=== PATIENT | male | born 1950 | race Caucasian/White ===

== ENCOUNTER 2016-06-08 10:16 | Outpatient (CLI) | payer MEDICARE, OTHER | END 2016-06-08 10:17 | disposition home or self-care (01) | DX: N05.9 Unspecified nephritic syndrome with unspecified morphologic changes (principal); E83.30 Disorder of phosphorus metabolism, unspecified; N25.81 Secondary hyperparathyroidism of renal origin; R80.9 Proteinuria, unspecified; D70.9 Neutropenia, unspecified; D63.1 Anemia in chronic kidney disease ==

== ENCOUNTER 2016-07-28 08:00 | Outpatient (CLI) | payer MEDICARE, OTHER | END 2016-07-28 23:59 | DX: E78.5 Hyperlipidemia, unspecified (principal); E11.9 Type 2 diabetes mellitus without complications; I10 Essential (primary) hypertension; N18.4 Chronic kidney disease, stage 4 (severe) ==

== ENCOUNTER 2017-01-17 08:56 | Outpatient (CLI) | payer MEDICARE, OTHER ==
[2017-01-17 12:49] LABS: BASOPHILS # (AUTO) 0.1 10^3/uL (0.0-0.1); BASOPHILS % (AUTO) 0.8 %; EOSINOPHILS # (AUTO) 0.5 10^3/uL (0.0-0.7); EOSINOPHILS % (AUTO) 8.3 %; HCT - HEMATOCRIT 38.3 % (42.0-52.0); HGB - HEMOGLOBIN 13.3 g/dL (14.0-18.0); LYMPHOCYTES # (AUTO) 1.3 10^3/uL (1.5-3.5); LYMPHOCYTES % (AUTO) 20.8 %; MEAN CORPUSCULAR HEMOGLOBIN 28.5 pg (27.0-31.0); MEAN CORPUSCULAR HGB CONC 34.8 g/dL (32.0-36.0); MEAN PLATELET VOLUME 7.9 fL (7.4-11.4); MONOCYTES # (AUTO) 0.4 10^3/uL (0.0-1.0); MONOCYTES % (AUTO) 5.9 %; NEUTROPHILS # (AUTO) 4.1 10^3/uL (1.5-6.6); NEUTROPHILS % (AUTO) 64.2 %; NUCLEATED RED BLOOD CELLS AUTO 0.1 /100WBC; RED BLOOD COUNT 4.67 10^6/uL (4.70-6.10); RED CELL DISTRIBUTION WIDTH 14.2 % (12.0-15.0); UNCORRECTED WHITE BLOOD COUNT 6.3 x10^3/uL; WHITE BLOOD COUNT 6.3 x10^3/uL (4.8-10.8)
[2017-01-17 13:22] LABS: ALBUMIN/GLOBULIN RATIO 1.3 (1.0-2.2); BILIRUBIN,TOTAL 0.5 mg/dL (0.2-1.0); BUN - BLOOD UREA NITROGEN 34 mg/dL (6-20); CALCIUM 9.3 mg/dL (8.5-10.3); CARBON DIOXIDE - CO2 23 mmol/L (21-32); CHLORIDE 107 mmol/L (101-111); CHOL/HDL RATIO 10.8 (<5.0); CHOLESTEROL 281 mg/dL; CREATININE 2.6 mg/dL (0.6-1.2); GFR - MDRD 25 (>89); GLUCOSE 215 mg/dL (70-100); HDL CHOLESTEROL 26 mg/dL; POTASSIUM 3.9 mmol/L (3.5-5.0); SODIUM 137 mmol/L (135-145); TOTAL PROTEIN 7.1 g/dL (6.7-8.2); TRIGLYCERIDES 872 mg/dL
[2017-01-17 13:33] LABS: HEMOGLOBIN A1C 1.29 g/dL
[2017-01-17 13:42] LABS: LDL CHOLESTEROL,DIRECT 95 mg/dL
== END 2017-01-17 08:57 | disposition home or self-care (01) ==
LOC: LAB.WCP 08:56
PROVIDERS: ATTEND Family Medicine
DX: E11.21 Type 2 diabetes mellitus with diabetic nephropathy (principal); N18.4 Chronic kidney disease, stage 4 (severe); E78.5 Hyperlipidemia, unspecified; I10 Essential (primary) hypertension; N05.9 Unspecified nephritic syndrome with unspecified morphologic changes; D70.9 Neutropenia, unspecified; D63.1 Anemia in chronic kidney disease
CPT/HCPCS: 36415; 80053; 80061; 83036; 84443; 85025

== ENCOUNTER 2017-07-10 08:00 | Outpatient (CLI) | payer MEDICARE, OTHER ==
[2017-07-10 13:49] LABS: ALBUMIN 4.1 g/dL (3.2-5.5); ALBUMIN/GLOBULIN RATIO 1.3 (1.0-2.2); BILIRUBIN,TOTAL 0.3 mg/dL (0.2-1.0); CALCIUM 9.3 mg/dL (8.5-10.3); CREATININE 2.9 mg/dL (0.6-1.2); TOTAL PROTEIN 7.3 g/dL (6.7-8.2)
[2017-07-10 13:51] LABS: HB2 TOTAL 14.2 g/dL; HEMOGLOBIN A1C 0.87 g/dL; HEMOGLOBIN A1C % 7.8 % (4.6-6.2)
== END 2017-07-10 08:01 | disposition home or self-care (01) ==
LOC: LAB.WCP 08:00
PROVIDERS: ATTEND Family Medicine
DX: I12.9 Hypertensive chronic kidney disease with stage 1 through stage 4 chronic kidney disease, or unspecified chronic kidney disease (principal); N18.4 Chronic kidney disease, stage 4 (severe); E11.9 Type 2 diabetes mellitus without complications; R00.2 Palpitations
CPT/HCPCS: 36415; 80053; 83036

== ENCOUNTER 2017-09-06 08:00 | Outpatient (CLI) | payer MEDICARE, OTHER ==
[2017-09-06 12:57] LABS: HGB - HEMOGLOBIN 13.1 g/dL (14.0-18.0); MEAN CORPUSCULAR HEMOGLOBIN 28.9 pg (27.0-31.0); MEAN PLATELET VOLUME 7.9 fL (7.4-11.4); RED BLOOD COUNT 4.55 10^6/uL (4.70-6.10); RED CELL DISTRIBUTION WIDTH 14.7 % (12.0-15.0); WHITE BLOOD COUNT 6.5 x10^3/uL (4.8-10.8)
[2017-09-06 13:37] LABS: CALCIUM 9.1 mg/dL (8.5-10.3); PHOSPHORUS 2.8 mg/dL (2.5-4.6)
[2017-09-06 15:17] LABS: CREATININE,URINE 98.5 mg/dL; PROTEIN/CREATININE RATIO,URINE 2.4 (<=0.2)
== END 2017-09-06 08:01 ==
LOC: LAB.WCP 08:00
PROVIDERS: ATTEND Internal Medicine Nephrology
DX: D70.9 Neutropenia, unspecified (principal); D63.1 Anemia in chronic kidney disease; N05.9 Unspecified nephritic syndrome with unspecified morphologic changes; E83.50 Unspecified disorder of calcium metabolism; E83.30 Disorder of phosphorus metabolism, unspecified; R80.9 Proteinuria, unspecified
CPT/HCPCS: 36415; 80048; 82570; 84100; 84156

== ENCOUNTER 2018-02-13 09:30 | Outpatient (CLI) | payer MEDICARE, OTHER ==
[2018-02-13 12:47] LABS: HB2 TOTAL 13.3 g/dL; HEMOGLOBIN A1C 0.92 g/dL; HEMOGLOBIN A1C % 8.5 % (4.6-6.2)
[2018-02-13 12:52] LABS: ALBUMIN 4.1 g/dL (3.2-5.5); ALBUMIN/GLOBULIN RATIO 1.3 (1.0-2.2); ALKALINE PHOSPHATASE 31 IU/L (42-121); ALT ALANINE AMINOTRANSFERASE 27 IU/L (10-60); AST ASPARTATE AMINOTRANSFERASE 29 IU/L (10-42); BILIRUBIN,TOTAL 0.7 mg/dL (0.2-1.0); BUN - BLOOD UREA NITROGEN 36 mg/dL (6-20); CALCIUM 10.1 mg/dL (8.5-10.3); CARBON DIOXIDE - CO2 22 mmol/L (21-32); CHLORIDE 105 mmol/L (101-111); CHOL/HDL RATIO 9.3 (<5.0); CHOLESTEROL 260 mg/dL; CREATININE 3.2 mg/dL (0.6-1.2); GFR - MDRD 19 (>89); GLUCOSE 87 mg/dL (70-100); HDL CHOLESTEROL 28 mg/dL; SODIUM 138 mmol/L (135-145); TOTAL PROTEIN 7.2 g/dL (6.7-8.2)
[2018-02-13 13:33] LABS: LDL CHOLESTEROL,DIRECT 119 mg/dL; LDLD/HDL RATIO 4.3 (<3.6)
== END 2018-02-13 09:31 ==
LOC: LAB.WCP 09:30
PROVIDERS: ATTEND Family Medicine
DX: E78.5 Hyperlipidemia, unspecified (principal); Z12.5 Encounter for screening for malignant neoplasm of prostate; E11.22 Type 2 diabetes mellitus with diabetic chronic kidney disease; I12.9 Hypertensive chronic kidney disease with stage 1 through stage 4 chronic kidney disease, or unspecified chronic kidney disease; N18.4 Chronic kidney disease, stage 4 (severe)
CPT/HCPCS: 36415; 80053; 80061; 83036; 83721; G0103; 84153

== ENCOUNTER 2018-07-09 08:00 | Outpatient (CLI) | payer MEDICARE, OTHER | END 2018-07-09 23:59 | disposition home or self-care (01) | LOC: LAB.WCP 08:00 | PROVIDERS: ATTEND Family Medicine | DX: J02.9 Acute pharyngitis, unspecified (principal); L29.9 Pruritus, unspecified ==

== ENCOUNTER 2018-07-18 08:00 | Outpatient (CLI) | payer MEDICARE, OTHER ==
[2018-07-18 13:07] LABS: BASOPHILS % (AUTO) 0.8 %; EOSINOPHILS # (AUTO) 0.7 10^3/uL (0.0-0.7); EOSINOPHILS % (AUTO) 12.1 %; HGB - HEMOGLOBIN 12.7 g/dL (14.0-18.0); LYMPHOCYTES # (AUTO) 1.1 10^3/uL (1.5-3.5); LYMPHOCYTES % (AUTO) 19.9 %; MEAN CORPUSCULAR HGB CONC 33.8 g/dL (32.0-36.0); MEAN CORPUSCULAR VOLUME 85.7 fL (80.0-94.0); MEAN PLATELET VOLUME 8.1 fL (7.4-11.4); MONOCYTES # (AUTO) 0.3 10^3/uL (0.0-1.0); MONOCYTES % (AUTO) 5.5 %; NEUTROPHILS # (AUTO) 3.4 10^3/uL (1.5-6.6); NEUTROPHILS % (AUTO) 61.7 %; PLT - PLATELET COUNT 159 10^3/uL (130-450); RED BLOOD COUNT 4.39 10^6/uL (4.70-6.10); RED CELL DISTRIBUTION WIDTH 14.4 % (12.0-15.0); WHITE BLOOD COUNT 5.5 x10^3/uL (4.8-10.8)
[2018-07-18 13:19] LABS: ALBUMIN 3.9 g/dL (3.2-5.5); ALBUMIN/GLOBULIN RATIO 1.1 (1.0-2.2); ALKALINE PHOSPHATASE 34 IU/L (42-121); ALT ALANINE AMINOTRANSFERASE 29 IU/L (10-60); AST ASPARTATE AMINOTRANSFERASE 28 IU/L (10-42); BILIRUBIN,TOTAL 0.6 mg/dL (0.2-1.0); BUN - BLOOD UREA NITROGEN 31 mg/dL (6-20); CALCIUM 8.9 mg/dL (8.5-10.3); CARBON DIOXIDE - CO2 21 mmol/L (21-32); CHLORIDE 105 mmol/L (101-111); CREATININE 2.8 mg/dL (0.6-1.2); GFR - MDRD 23 (>89); GLUCOSE 137 mg/dL (70-100); SODIUM 134 mmol/L (135-145); TOTAL PROTEIN 7.4 g/dL (6.7-8.2)
[2018-07-18 14:50] LABS: HB2 TOTAL 13.2 g/dL; HEMOGLOBIN A1C 0.84 g/dL
== END 2018-07-18 23:59 | disposition home or self-care (01) ==
LOC: LAB.WCP 08:00
PROVIDERS: ATTEND Family Medicine
DX: E11.40 Type 2 diabetes mellitus with diabetic neuropathy, unspecified (principal); E11.21 Type 2 diabetes mellitus with diabetic nephropathy; E11.9 Type 2 diabetes mellitus without complications
CPT/HCPCS: 36415; 80053; 82043; 83036; 84443; 85025

== ENCOUNTER 2018-10-01 15:55 | Observation (INO) | payer MEDICARE, OTHER ==
--- NOTE | 2018-10-01 16:13 | ED Physician Documentation ---
PD HPI FOCAL NEURO - Stated complaint Stated Complaint: DIZZY/MOUTH SLUGGISH - Chief complaint Chief Complaint: Neuro - History obtained from History obtained from: Patient, Family () - History of Present Illness Timing - onset: Other (Starting 3 days ago he has had vertigo that space is been constant since associated with fatigue and starting 2 days ago he has had difficulty speaking with slurred speech and discoordination of his tongue without a aphasia. There is no associated headache. He feels generally weak but not focally weak or numb.) Review of Systems Ten Systems: 10 systems reviewed and negative Constitutional: reports: Reviewed and negative Ears: reports: Reviewed and negative Nose: reports: Reviewed and negative Throat: reports: Reviewed and negative PD PAST MEDICAL HISTORY - Past Medical History Cardiovascular: Hypertension, High cholesterol Endocrine/Autoimmune: Type 2 diabetes : Renal insuffiency, Kidney stones - Present Medications Home Medications: Ambulatory Orders Medication Instructions Recorded Confirmed Amlodipine Besylate 10 mg PO BID 02/26/18 02/26/18 Carvedilol 12.5 mg PO BID 02/26/18 02/26/18 Clotrimazole/Betamethasone Crm 45 gm TOP BID 02/26/18 02/26/18 [Lotrisone Cream] Fenofibrate 160 mg PO DAILY 02/26/18 02/26/18 Gabapentin 300 mg PO BID 02/26/18 02/26/18 Insulin NPH Hum/Reg Insulin Hm 60 unit SUBQ BIDWM 02/26/18 02/26/18 [Novolin 70-30 100 Unit/ml Vial] hydrALAZINE [Apresoline] 50 mg PO BID 02/26/18 02/26/18 - Allergies Allergies/Adverse Reactions: Allergies Allergy/AdvReac Type Severity Reaction Status Date / Time No Known Drug Allergies Allergy Verified 10/01/18 16:10 - Social History Smoking Status: Former smoker Does the pt have substance abuse?: No - Family History Family history: reports: Non contributory PD ED PE NORMAL - Vitals Vital signs reviewed: Yes - General General: Alert and oriented X 3, No acute distress - HEENT HEENT: PERRL, EOMI - Neck Neck: Supple, no meningeal sign, No bony TTP - Cardiac Cardiac: RRR, No murmur - Respiratory Respiratory: No respiratory distress, Clear bilaterally - Abdomen Abdomen: Soft, Non tender - Back Back: No CVA TTP, No spinal TTP - Derm Derm: Normal color, Warm and dry - Extremities Extremities: No edema, No calf tenderness / cord - Neuro Neuro: Alert and oriented X 3, Normal speech Eye Opening: Spontaneous Motor: Obeys Commands Verbal: Oriented GCS Score: 15 NIHSS - Time Time: 16:05 - Level of Consciousness Level of consciousness: (0) Alert, Keenly responsive LOC Questions: (0) Answers both Q's correct LOC Commands: (0) Performs both correctly - Gaze Best Gaze: (0) Normal - Visual Visual: (0) No loss - Facial Palsy Facial Palsy: (0) Normal, symmetrical movement - Motor Arms (both separate) Motor Arm (right): (0) No drift Motor Arm (left): (0) No drift - Motor Legs (both separate) Motor Leg (right): (0) No drift Motor Leg (left): (0) No drift - Limb Ataxia Limb Ataxia: (0) Absent - Sensory Sensory: (0) Normal - Best Language Best Language: (0) No aphasia - Dysarthria Dysarthria: (1) Syah-ey-piqgiets dysarthria - Extinction and Inattention (formally neg Extinction and inattention: (0) No abnormality - Total Score/Results Total Score/Result: 1 Results - Vitals Vitals: Vital Signs - 24 hr 10/01/18 10/01/18 16:05 17:32 Temperature 36.6 C Heart Rate 71 76 Respiratory 15 17 Rate Blood Pressure 181/85 H 146/94 H O2 Saturation 100 97 Oxygen O2 Source Room air - Labs Labs: Laboratory Tests 10/01/18 10/01/18 10/01/18 16:07 16:07 16:07 WBC 6.5 RBC 4.84 Hgb 13.9 L Hct 41.3 L MCV 85.2 MCH 28.8 MCHC 33.7 RDW 13.7 Plt Count 183 MPV 7.5 Neut # (Auto) 3.8 Lymph # (Auto) 1.4 L [place] # (Auto) 0.4 Eos # (Auto) 0.8 H Baso # (Auto) 0.1 Absolute Nucleated RBC 0.01 Nucleated RBC % 0.1 PT 11.9 INR 1.1 Sodium 135 Potassium 4.6 Chloride 102 Carbon Dioxide 25 Anion Gap 8.0 BUN 38 H Creatinine 3.1 H Estimated GFR (MDRD) 20 L Glucose 212 H POC Whole Bld Glucose Calcium 9.3 Total Bilirubin 0.6 AST 27 ALT 34 Alkaline Phosphatase 43 Total Protein 7.2 Albumin 4.2 Globulin 3.0 Albumin/Globulin Ratio 1.4 Lipase 51 10/01/18 16:08 WBC RBC Hgb Hct MCV MCH MCHC RDW Plt Count MPV Neut # (Auto) Lymph # (Auto) [place] # (Auto) Eos # (Auto) Baso # (Auto) Absolute Nucleated RBC Nucleated RBC % PT INR Sodium Potassium Chloride Carbon Dioxide Anion Gap BUN Creatinine Estimated GFR (MDRD) Glucose POC Whole Bld Glucose 212 H Calcium Total Bilirubin AST ALT Alkaline Phosphatase Total Protein Albumin Globulin Albumin/Globulin Ratio Lipase - Rads (name of study) CT Head Radiology: EMP read contemporaneously (NAD) PD MEDICAL DECISION MAKING - ED course ED course: 68-year-old gentleman presents with strokelike symptoms. Well outside of the window for TPA. Chronic renal insufficiency is at a level that would not allow contrast for CT angiography. Plain CT was negative for acute pathology but low sensitivity for posterior symptoms. Administered aspirin after no bleed found. Spoke with Dr. Cordoba for observation at 6:05 PM. Departure - Departure Disposition: ED Place in Observation Clinical Impression: Dysarthria, Vertigo Condition: Stable
[2018-10-01] MEDS ORDERED: IOPAMIDOL-370 100 ML VIAL ONE (16:24)
[2018-10-01 16:31] LABS: BASOPHILS # (AUTO) 0.1 10^3/uL (0.0-0.1); EOSINOPHILS # (AUTO) 0.8 10^3/uL (0.0-0.7); HGB - HEMOGLOBIN 13.9 g/dL (14.0-18.0); LYMPHOCYTES # (AUTO) 1.4 10^3/uL (1.5-3.5); LYMPHOCYTES % (AUTO) 21.1 %; MEAN CORPUSCULAR HEMOGLOBIN 28.8 pg (27.0-31.0); MEAN CORPUSCULAR HGB CONC 33.7 g/dL (32.0-36.0); MEAN CORPUSCULAR VOLUME 85.2 fL (80.0-94.0); MEAN PLATELET VOLUME 7.5 fL (7.4-11.4); MONOCYTES # (AUTO) 0.4 10^3/uL (0.0-1.0); MONOCYTES % (AUTO) 6.3 %; NEUTROPHILS # (AUTO) 3.8 10^3/uL (1.5-6.6); NEUTROPHILS % (AUTO) 58.6 %; PLT - PLATELET COUNT 183 10^3/uL (130-450); RED BLOOD COUNT 4.84 10^6/uL (4.70-6.10); RED CELL DISTRIBUTION WIDTH 13.7 % (12.0-15.0); WHITE BLOOD COUNT 6.5 x10^3/uL (4.8-10.8)
[2018-10-01] MEDS ORDERED: IOVERSOL 320 100 ML VIAL IVP ONE (16:32)
[2018-10-01 16:37] LABS: ALBUMIN 4.2 g/dL (3.2-5.5); ALBUMIN/GLOBULIN RATIO 1.4 (1.0-2.2); BILIRUBIN,TOTAL 0.6 mg/dL (0.2-1.0); CALCIUM 9.3 mg/dL (8.5-10.3); CREATININE 3.1 mg/dL (0.6-1.2); INR 1.1 (0.8-1.2); PT - PROTHROMBIN TIME 11.9 secs (9.9-12.6); TOTAL PROTEIN 7.2 g/dL (6.7-8.2)
--- NOTE | 2018-10-01 18:01 | CT Report ---
Reason: dysarthria, vertigo Procedure Date: 10/01/2018 Accession Number: [id number] / [id number] Procedure: CT - HEAD WO CPT Code: FULL RESULT: EXAM: CT HEAD EXAM DATE: 10/01/2018 05:01 PM. CLINICAL HISTORY: Dysarthria, vertigo. COMPARISON: None. TECHNIQUE: Multiaxial CT images were obtained from the foramen magnum to the vertex. Reformats: Sagittal and coronal. IV contrast: None. In accordance with CT protocol optimization, one or more of the following dose reduction techniques were utilized for this exam: automated exposure control, adjustment of mA and/or KV based on patient size, or use of iterative reconstructive technique. FINDINGS: Parenchyma: No intraparenchymal hemorrhage. No evidence of mass, midline shift, or CT findings of acute infarction. Barbosa-white differentiation is distinct. Extraaxial Spaces: Mild volume loss. No subdural or epidural collections identified. Ventricles: Normal in size and position. Sinuses and Orbits: Imaged paranasal sinuses, orbits, and mastoids show no significant abnormality. Bones: No evidence of fracture or calvarial defect. Other: None. IMPRESSION: No acute intracranial abnormality. RADIA
[2018-10-01] MEDS ORDERED: ASPIRIN CHEW 81 MG TABLET PO STA (18:03)
[2018-10-01] MEDS ORDERED: ONDANSETRON 4 MG/2 ML VIAL IVP PRN (18:14)
[2018-10-01] MEDS ORDERED: SODIUM CHLORIDE FLUSH 0.9% 10 ML SYRINGE IVP PRN (18:14)
[2018-10-01] MEDS ORDERED: ACETAMINOPHEN 325 MG TABLET PO PRN (18:14)
[2018-10-01 19:36] LABS: HB2 TOTAL 15.2 g/dL; HEMOGLOBIN A1C 0.96 g/dL; HEMOGLOBIN A1C % 7.9 % (4.6-6.2)
[2018-10-01] MEDS: SODIUM CHLORIDE 0.9% 1,000 ML IV SCH (19:46)
[2018-10-01] MEDS: SODIUM CHLORIDE FLUSH 0.9% 10 ML SYRINGE IVP SCH (19:46)
--- NOTE | 2018-10-01 20:31 | Ultrasound Report ---
Reason: TIA Procedure Date: 10/01/2018 Accession Number: [id number] / [id number] Procedure: US - Carotid Doppler Complete CPT Code: FULL RESULT: EXAM: BILATERAL CAROTID AND VERTEBRAL ARTERY DUPLEX DOPPLER ULTRASOUND: EXAM DATE: 10/01/2018 07:20 PM CLINICAL HISTORY: Stroke. COMPARISON: None. TECHNIQUE: Grayscale imaging, color Doppler, and duplex spectral Doppler were used to evaluate the carotid and vertebral arteries bilaterally. Static images were obtained. FINDINGS: No significant plaque is identified in the right or left common or internal carotid arteries. Normal antegrade flow is present in bilateral vertebral arteries. VELOCITIES (cm/sec): Right CCA mid: PSV 74.6 cm/sec CCA dist: PSV 72 cm/sec ICA prox: PSV 61.5 cm/sec, EDV 15.7 cm/sec ICA mid: PSV 68.7 cm/sec, EDV 15.7 cm/sec ICA dist: PSV 59.5 cm/sec, EDV 14.4 cm/sec ECA: PSV 79.2 cm/sec Vert: PSV 39.9 cm/sec ICA/CCA: 0.9 Left CCA mid: PSV 74.8 cm/sec CCA dist: PSV 73.3 cm/sec ICA prox: PSV 70.2 cm/sec, EDV 15.3 cm/sec ICA mid: PSV 65.6 cm/sec, EDV 16.8 cm/sec ICA dist: PSV 70.7 cm/sec, EDV 15.3 cm/sec ECA: PSV 92.3 cm/sec Vert: PSV 64.9 cm/sec ICA/CCA: 0.9 ICA diameter stenosis: Right: <50% by velocity and <70% by NASCET criteria. Left: <50% by velocity and <70% by NASCET criteria. IMPRESSION: 1. No significant bilateral carotid artery plaquing. 2. In the right carotid artery there are no elevated carotid artery velocities to suggest hemodynamically significant stenosis. 3. In the left carotid artery there are no elevated carotid artery velocities to suggest hemodynamically significant stenosis. 4. Normal antegrade flow is present in bilateral vertebral arteries. General Recommendations: Stenosis =50% ICA - Follow-up ultrasound 6-12 months Stenosis <50% ICA - High Risk Patient with plaque - Follow-up ultrasound 1-2 years Normal Study but High Risk Patient - Follow-up ultrasound 3-5 years Management recommendations and diagnostic criteria are based on current IAC endorsed standards in Carotid Artery Stenosis: Grayscale and Doppler Ultrasound Diagnosis. Validated velocity measurements with angiographic measurements and velocity criteria are extrapolated from diameter data as defined by the Society of Radiologists in Ultrasound Consensus Conference Radiology 2003; 229;340-346. RADIA
[2018-10-01] MEDS ORDERED: NON FORMULARY MED (Amlodipine Besylate [Amlodipine Besylate] 10 MG) PO SCH (21:00)
[2018-10-01] MEDS ORDERED: FAMOTIDINE 20 MG TABLET PO SCH (21:00)
--- NOTE | 2018-10-01 21:13 | MRI Report ---
Reason: TIA Procedure Date: 10/01/2018 Accession Number: [id number] / [id number] Procedure: MRI - Brain W/O CPT Code: FULL RESULT: EXAM: MRI BRAIN WITHOUT CONTRAST EXAM DATE: 10/01/2018 07:07 PM. CLINICAL HISTORY: 68-year-old presenting with TIA like episode as well as dizziness and vertigo. Evaluate for intracranial pathology. COMPARISON: CT head 10/01/2018. TECHNIQUE: Multiplanar, multisequence T1-weighted and fluid-sensitive MR sequences of the brain were performed. Sequences optimized for routine evaluation. Other: None. IV Contrast: None. FINDINGS: Brain Volume: Normal for age. Parenchyma/Dura: No acute parenchymal hemorrhage, mass, or midline shift. There is a small area of restricted diffusion involving the left hemipons 8 x 13 mm (series 605, image 56). There is associated T2/FLAIR signal hyperintensity but no evidence of hemorrhagic transformation. There is a punctate foci of restricted diffusion involving the superior right thalamus measuring 2 x 5 mm (series 605, image 112). There is associated T2/FLAIR signal hyperintensity but no evidence of hemorrhagic transformation. There is additional mild bilateral areas of T2/FLAIR signal hyperintensity seen. There is punctate foci susceptibility artifact seen within the right lateral thalamus (series 501, image 12). Ventricles/Cisterns: No hydrocephalus. No abnormal extra-axial fluid collection or hemorrhage. Orbits: Changes of bilateral lens replacement. Sella [place]: The pituitary gland, cavernous sinuses, suprasellar cistern and optic chiasm are unremarkable. IAC: Symmetric and unremarkable. Vasculature: Normal signal flow void is seen in the major arterial structures at the skull base. Sinuses: Mild mucosal thickening of the ethmoid air cells with minimal mucosal thickening of the maxillary sinuses and sphenoid sinuses. Mastoid air cells and middle ear cavities appear clear. Bones: No focal pathologic appearing marrow signal changes. Other: None. IMPRESSION: 1. There is a small acute infarct of the left hemipons measuring 8 x 13 mm. No evidence of hemorrhagic transformation. 2. There is a punctate acute infarct of the superior right thalamus measuring 2 x 5 mm. No evidence of hemorrhagic transformation. Infarcts in varying vascular territory suggest a thromboembolic phenomenon. 3. No acute intracranial hemorrhage, mass, hydrocephalus, or midline shift. 4. Additional mild white matter changes seen that while nonspecific, likely represent sequela of chronic small vessel ischemic disease. 5. Punctate foci of chronic hemosiderin deposition within the right lateral thalamus. Etiologies include microhemorrhage from hypertension or old hemorrhagic lacunar infarct. RADIA The call report notification system was initiated by Dr. Siddhartha Black at 09:12 PM on 10/01/2018. ADDENDUM: 10/01/18 22:02 The above call report findings were discussed with Christine Sanford by Dr. Siddhartha Black at 10:02 PM on 10/01/2018.
[2018-10-01] MEDS: HEPARIN 5,000 UNIT/ML VIAL SUBQ SCH (22:28)
[2018-10-01] MEDS: INSULIN ASPART 300 UNIT/3 ML PEN SUBQ SCH (22:29)
[2018-10-01] MEDS: CARVEDILOL 12.5 MG TABLET PO SCH (22:30)
[2018-10-01] MEDS: hydrALAZINE 25 MG TABLET PO SCH (22:30)
--- NOTE | 2018-10-01 22:39 | ADVANCE CARE PLANNING NOTE ---
Advance Care Planning - Date/Time Date: 10/01/18 Time: 20:30 - Purpose of encounter Text: establish code status - Parties in attendance Parties in attendance: , patient and hospitalist - Decisional capacity Decisional capacity of: patient is intact in spite of CVA. Lucid historian, alert, slight dysarthria. feels he is his usual self with regards to decisions. - Subjective/Patient's story Subjective/Patient's story: He lives at home with his of 49 years and has been fatalistic about his health. He likes to do what he wants to do and doesn't like to change. Hence his A1c has not been below 7% except for maybe once, and his BP is high. He does drink 4-6 large glasses of wine a day. He feels like he's had a good life and he's "ready to " if it comes to that. He has 12 children and over 25 grandchildren and he is a "wealthy man" with such a large, loving family. He comes in w hx of severe fatigue on 09/28 with onset of dizziness he's had before. 10 years ago he has such severe vertigo it caused nausea and vomititng with blurred vision. This time he had dysarthria starting on 09/29. 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 He is already starting to improve his speech while he has been here. He feels great and doesn't really want much done. He is starting to think about "winding down" because of his health and what that would mean. He thinks he may opt for less interventions in the next few months depending on how much his body goes downhill. His has made is clear she cannot be his "nurse" and would want help with him. With that in mind he knows he doesn't want her or his kids taking care of him if he is disabled and he doesn't want to live in a SNF. he is currently independt with his ADL's but recognizes that may change with his strokes, if they continue. I've also pointed out his risk of KS or need for dialysis if he drops his pressures. - Objective/Medical story Objective/Medical Story: Timing - onset: Other (Starting 3 days ago he has had vertigo that space is been constant since associated with fatigue and starting 2 days ago he has had difficulty speaking with slurred speech and discoordination of his tongue wit hout a aphasia. There is no associated headache. He feels generally weak but not focally weak or numb.) Review of Systems Ten Systems: 10 systems reviewed and negative Constitutional: reports: Reviewed and negative Ears: reports: Reviewed and negative Nose: reports: Reviewed and negative Throat: reports: Reviewed and negative PD PAST MEDICAL HISTORY - Past Medical History Cardiovascular: Hypertension, High cholesterol Endocrine/Autoimmune: Type 2 diabetes : Renal insuffiency, Kidney stones His MRI shows 2 acute strokes plus one old stroke. Carotids negative. ECHO pending. EKG with sinus, PVC and PAC. Exam already improving according to he and his with speech better, and dizziness gone. - Goals of Care Goals of care determinations: He wants to remain at home and indepenndent as possible. Not bedbound, not in a wheelchair even if he is still oriented and still capable of communicating. He wants to be DNR and he both agree she cannot take care of him if he becomes disabled. - Plan Plan: Complete workup for possible embolic CVA with ECHO Consult [facility] PT/OT/Speech eval. Most likely will go home in am since feels so much better. I would like he and his to begin the discussion of what they will do if he does become more disabled and what their plans would look like since she can't care for him and he doesn't want SNF. They are open to Palliative Care Consult as he continues to wind down with his physicality and would then most likely transition to Hospice when the time comes. - Code Status Code Status: Do Not Attempt Resuscitation - Time Spent on Advance Care Planning Time spent on advance care plannin minutes
[2018-10-02] MEDS: SODIUM CHLORIDE FLUSH 0.9% 10 ML SYRINGE IVP SCH ×2 (00:51→08:26)
--- NOTE | 2018-10-02 01:49 | HISTORY & PHYSICAL EXAMINATION ---
DATE OF SERVICE: 10/01/2018 Physician: Nina Corcoran MD PRIMARY CARE PROVIDER: Ross Mcdaniel MD. ADMITTING PROVIDER: Nina Corcoran MD. CHIEF COMPLAINT: Severe fatigue, severe dizziness, dysarthric speech since Sunday (Today is Sunday). HISTORY OF PRESENT ILLNESS: The patient is a 68-year-old male whose past medical history with regard to risk of stroke is positive for high blood pressure and uncontrolled diabetes with complications of retinopathy, neuropathy and nephropathy. He also has hyperlipidemia. He is compliant with his medications. His A1c has gotten down to 8%. Unfortunately, he is drinking 2-4 glasses of wine a day, with each glass probably being around 4-6 ounces. He is an ex-smoker. He smoked 1 pack per day for 12 years and smoked for 12 years. Quit smoking in 1977. He is compliant with his medications. He sees his primary care provider on a regular basis. In February, he was identified as having a PSA that had risen from 2 in 2013 to over 5 in 2018. He was referred to urology, but there has been no urology note in the chart noted. He was seen for office visit followup in July for his diabetes. At that time, he had his A1c drop from 8.5% to 8%. His blood pressure for that visit was 142/84. There was hesitation in increasing his blood pressure medication even further because of the patient's chronic kidney disease for which he sees Dr. Toribio. He is stage 4. In May, he got a sore throat with chest congestion. He just has not been right since. He has been unusually congested in his sinuses and his head. He was treated as strep throat and got amoxicillin, but then had a subsequent rash. Changed to azithromycin. He still continues to have a mildly sore throat, chest congestion that just does not want to go away. He also has a history of vertigo. Ten years ago, it was so violent that he was nauseated and vomiting aggressively with this. That eventually went away. On Sunday, he drove back from [place]. This was on 09/28/2018. He noticed that he was unusually fatigued. By the time he got home, he was just exhausted and then the dizziness started as well on Sunday. Starting Sunday morning, he began having problems with his speech and has progressed from that point. Speech was getting more and more difficult. No significant paralysis, but he had dizziness and facial dysesthesia. He finally came to the hospital today, where he was evaluated in the emergency room. His blood pressure was 181/85, afebrile, oxygenating well. He was alert and oriented. Edinson coma scale was 15. He was felt to have normal speech on neuro exam, but when he did the NIHSS exam, he was felt to be dysarthric. Head CT shows him to have no acute intracranial abnormality. Carotid Doppler is done and he has no significant bilateral carotid artery plaquing and he has normal antegrade flow present in the bilateral vertebral arteries. An MRI does show a small acute infarct in the left zaina kumar measuring 8 x 13 mm, a punctate acute infarct in the superior right thalamus measuring 2 x 5 mm; no hemorrhagic transformation either one of these. Infarcts in varying vascular territories suggest a thromboembolic phenomena. He had punctate foci of chronic hemosiderin deposition within the right lateral thalamus. This final abnormality is interpreted as including micro hemorrhage from hypertension or old hemorrhagic lacunar infarct. His EKG is sinus tachycardia with a left bundle-branch block and he has multiple PVCs. PAST MEDICAL HISTORY 1. Hypertension. 2. Diabetes mellitus for over 20 years. He does not ever recall it being under control and below 7%. He has complications of retinopathy, neuropathy, and nephropathy. 3. Hernia repair surgery. 4. Achilles heel rupture. 5. Bilateral cataract surgery with lens implants. 6. Laser surgery for macular degeneration. 7. Rising PSA. Not clear about urological consult. ALLERGIES: NO KNOWN DRUG ALLERGIES. MEDICATIONS 1. Amlodipine 10 mg twice a day. 2. Cetirizine 10 mg daily. 3. Fluticasone nasal spray twice a day. 4. Carvedilol 12.5 mg twice a day. 5. Hydralazine 25 mg tablets, 2 tablets in the morning, 1 tablet at lunch, 1 tablet at night. 6. Fluocinonide 0.05% cream to the rash he got with the amoxicillin back in July. 7. Gabapentin 300 mg capsule b.i.d. for burning legs. 8. Novolin 70/30, 60 units in the morning and 60 units in the evening. 9. Fenofibrate 160 mg daily. SOCIAL HISTORY: He was born in [place]. 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 Was stationed on [facility], but the program got cut after a year. 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 That was 28 years ago. 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 He used to smoke 1 pack a day for 12 years. He drinks 2-4 glasses of wine a day. In the past, he drank heavily with beer when he was in the [employer]. Never had problems with withdrawal. No history of recreational substance abuse. to his for 49 years. FAMILY HISTORY: Mom at age 74 of sinus cancer that went quickly into her brain. She was a heavy smoker. Dad at age 76 of aortic aneurysm rupture. Of 5 brothers and 4 sisters, many of them have high blood pressure and diabetes. One had renal failure and "" at home, but was resuscitated in the hospital after a code. Twelve children; one had a stroke in his late 40s as complications of his diabetes and hypertension. There is no cancer, heart attack or stroke in any other children. PREVIOUS LEVEL OF FUNCTION: He still drives a car, is independent with all of his activities of daily living. pays the bills, but she has done so their entire marriage. He feels himself "winding down" mentally and physically over the last few years. He uses no DME. REVIEW OF SYSTEMS GENERAL: He denies any weight loss, unexpected dietary complaints. No fevers, no sweats. ENT: Plagued by chronic sore throat, chronic chest congestion, chronic sensation of postnasal drip, unresponsive to antibiotics and inhaled nasal steroids. He has been referred to ENT to see someone. PULMONARY: Chronic chest congestion in the last 4-5 months. Always a sensation of phlegm that he has to cough up. This is new for him. Prior to that, he had no pulmonary complaints. He denies wheezing, hemoptysis. CARDIAC: Denies edema, orthopnea, chest tightness with the above cough, but no chest pain. Cardiovascular endurance is about the same as it was 6 months ago, but 25% less than it was a year ago. Denies palpitations. GASTROINTESTINAL: He is unhappy that he has been really trying to cut back on his food, cut back on his carbs and it has resulted in no weight loss. He denies abdominal pain, change in his bowel habits. No blood in his stool. GENITOURINARY: Has urinary retention symptoms, nocturia, urgency, frequency, rising PSA. No blood in his urine. No flank pain. JOINTS: He used to have terrible, terrible back pain with 2 disc ruptures when he was in the [employer]. But since slowing down with his life over the last few years, he has no back pain at all now. He thinks it is wonderful. In spite of his life, which was quite active, he feels like he is pretty blessed that he does not have significant joint pain. SKIN: Body rash in July with amoxicillin, has resolved. PSYCHIATRIC: He is sad about how much his body has slowed down over the last year, but he is not suicidal. He does not feel like he is depressed. Very fatalistic attitude. FILM MASKER: Ten years ago violent vertigo with nausea and vomiting, but no dysarthria, no syncope. No focal deficits of strength. With this, he feels like his tongue is not moving, his speech is slurred hours and he is having difficulty moving his limbs at times when he wanted them to move. Dizziness is present. PHYSICAL EXAMINATION VITAL SIGNS: Temperature is 36.6, pulse is 63, blood pressure is 159/93, respirations 20, and he is 97% on room air. GENERAL: He is a stocky 5 feet 8 inch white male at 104 kg. HEAD AND NECK: Slight left facial droop, slightly dysarthric speech only with specific words, not all words, and his sentence structure is quite good. Pupils are reactive. Some nystagmus in the left lateral gaze. Bearded, well groomed. Neck is supple. No goiter or bruits. No JVD. LUNGS: Clear in a barrel chest without crackles, rhonchi or wheezing. HEART: PMI is normally placed with a regular rate and rhythm. No murmurs, rubs or gallops. ABDOMEN: Protuberant, soft, nontender, obese. I do not really feel organomegaly. Normal bowel sounds. He does have slight femoral bruits. EXTREMITIES: Warm without clubbing, cyanosis or edema. Good foot pulses. NEUROLOGIC: Cranial nerves II-XII are tested and his speech is affected with slight left facial droop and nystagmus. Otherwise, upper and lower strength testing is normal. [id number] is slightly affected on the left, but rapid alternating hand movement is normal. No tremors. I am examining him after he had already been admitted for a couple of hours and he and his both state that he feels great. His speech is almost back to normal. LABORATORY DATA: BUN 38, creatinine 3.1, random glucose 212. A1c is 7.9%. Troponin less than 0.04. Liver enzymes are normal. White cell count 6.5, hemoglobin 13.9, hematocrit 41.3, MCV 85.2. INR 1.1. EKG has normal sinus rhythm with PVCs and left bundle-branch block. CT of the head, MRI of head, and carotid Dopplers reviewed in history of present illness. ASSESSMENT/PLAN: 1. 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 EKG is not atrial fib but he may be in and out. Plan: +Observation stay. The patient is already improving. Most of workup has been completed. +PT and OT evaluations in the morning as well as speech therapy to see if this patient is a candidate for inpatient rehab or he can go home with outpatient PT, OT and speech. +Attestation: The patient will be discharged within 96 hours. +Vital signs every 4 hours. +Aspirin and a statin have been given to the patient. When he is discharged to home, he will be on combined Plavix and aspirin for a specific time period, and then down to aspirin. +Echocardiogram to evaluate for possible embolic phenomenon. 2. Diabetes mellitus, uncontrolled, on long-term insulin with complications of retinopathy, nephropathy and neuropathy. Resume usual insulin. Add sliding scale insulin. This patient is already suffering the consequences of combined risk factors. I have carefully explained to him that if he can get his sugar and his glucose down, he can reduce some of his risk. 3. Uncontrolled hypertension in the outpatient setting. Now patient is with a stroke. Permissive hypertension will be allowed to a systolic of up to 180. 4. Abnormal prostate specific antigen. The patient cannot remember why he did not follow through with urology. It was not brought up on his last 2 visits. He does not know if he even wants to follow through. Advance care planning conversation held under separate conversation and note. 5. Do not resuscitate status. Again, separate advanced care planning conversation held. Please refer to that note. 6. Deep venous thrombosis prophylaxis. Will remain only aspirin and PIPPA hose in view of embolic phenomena. TD: 10/01/2018 22:29 [facility] SYSTEMAram
[2018-10-02] MEDS: SODIUM CHLORIDE 0.9% 1,000 ML IV SCH (05:13)
[2018-10-02 05:43] LABS: BASOPHILS # (AUTO) 0.1 10^3/uL (0.0-0.1); BASOPHILS % (AUTO) 0.9 %; EOSINOPHILS # (AUTO) 0.8 10^3/uL (0.0-0.7); HGB - HEMOGLOBIN 12.9 g/dL (14.0-18.0); LYMPHOCYTES # (AUTO) 1.4 10^3/uL (1.5-3.5); LYMPHOCYTES % (AUTO) 24.6 %; MEAN CORPUSCULAR HGB CONC 33.7 g/dL (32.0-36.0); MEAN CORPUSCULAR VOLUME 86.1 fL (80.0-94.0); MEAN PLATELET VOLUME 7.5 fL (7.4-11.4); MONOCYTES # (AUTO) 0.4 10^3/uL (0.0-1.0); MONOCYTES % (AUTO) 6.2 %; NEUTROPHILS # (AUTO) 3.2 10^3/uL (1.5-6.6); NEUTROPHILS % (AUTO) 55.3 %; PLT - PLATELET COUNT 165 10^3/uL (130-450); RED BLOOD COUNT 4.43 10^6/uL (4.70-6.10); RED CELL DISTRIBUTION WIDTH 13.8 % (12.0-15.0); WHITE BLOOD COUNT 5.8 x10^3/uL (4.8-10.8)
[2018-10-02 06:07] LABS: BUN - BLOOD UREA NITROGEN 35 mg/dL (6-20); CALCIUM 8.6 mg/dL (8.5-10.3); CARBON DIOXIDE - CO2 23 mmol/L (21-32); CHLORIDE 106 mmol/L (101-111); CHOL/HDL RATIO 13.5 (<5.0); CHOLESTEROL 269 mg/dL; GFR - MDRD 21 (>89); GLUCOSE 146 mg/dL (70-100); HDL CHOLESTEROL 20 mg/dL; MAGNESIUM 2.2 mg/dL (1.7-2.8); SODIUM 138 mmol/L (135-145)
[2018-10-02 06:35] LABS: LDL CHOLESTEROL,DIRECT 106 mg/dL; LDLD/HDL RATIO 5.3 (<3.6)
[2018-10-02] MEDS ORDERED: INSULIN 70/30 HUMAN 100 UNIT/1 ML 10 ML MDV SUBQ SCH (08:00)
[2018-10-02] MEDS ORDERED: ASPIRIN 325 MG TABLET PO SCH (08:00)
[2018-10-02 08:13] LABS: PSA FREE 0.85 ng/mL (0.16-2.81)
[2018-10-02 08:14] LABS: PSA TOTAL 1.95 ng/mL (0.000-2.000)
[2018-10-02] MEDS: INSULIN ASPART 300 UNIT/3 ML PEN SUBQ SCH ×2 (08:24→12:03)
[2018-10-02] MEDS: hydrALAZINE 25 MG TABLET PO SCH (08:24)
[2018-10-02] MEDS: HEPARIN 5,000 UNIT/ML VIAL SUBQ SCH (08:24)
[2018-10-02] MEDS: CARVEDILOL 12.5 MG TABLET PO SCH (08:24)
[2018-10-02] MEDS ORDERED: FENOFIBRATE 160 MG PO SCH (09:00)
[2018-10-02] MEDS ORDERED: POLYETHYLENE GLYCOL 3350 17 GM PACKET PO SCH (09:00)
[2018-10-02 11:18] VITALS: BP 149/66
--- NOTE | 2018-10-02 12:05 | Discharge Plan ---
Discharge Plan Disposition: Home, Self Care Condition: Poor Prescriptions: Aspirin 81 mg PO DAILY #15 tab.chew Atorvastatin [Lipitor] 20 mg PO DAILY #30 tablet Diet: Diabetic Activity Restrictions: Activity as Tolerated Shower Restrictions: No (fall precaution, caregiver closely monitor) Instruction Topics: Aspirin ASA chewable tablets, Atorvastatin tablets, Aphasia, Stroke Ischemic Additional Instructions or Follow Up instructions: you may followup your PCP in one week, followup neurologist as out-pt, followup your inventory specialist as your schedule. you was found to have a stroke. Neurologist in [place] was called. you are recommended to have low dosage of Aspirin and Lipitor. Should your symptoms return or worsen, you may present ER or call 911 or call your PCP for help No Smoking: If you smoke, Please STOP! Call for help. Follow-up with: Ross Mcdaniel MD [Primary Care Provider] -
--- NOTE | 2018-10-02 12:13 | DISCHARGE SUMMARY ---
Discharge Summary Discharge Date: 10/02/18 Discharging Provider: SHAH Primary Care Provider: Dr. 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 pt report he felt dizziness and fatigue, then he presented slurred speech two days ago when he was at home. He d enies unilateral weakness or other focus neurological deficits. CT of head was unremarkable. pt was admitted for further work of stroke. - HOSPITAL COURSE Hospital Course: 1, left hemipons and superior right thalamus stroke pt has normal speech, no slurred speech at all. pt has no other focus neurological deficit. MRI reveals two site acute infarct without hemorrhagic stroke, but MRI also show chronic hemosiderin deposition in right lateral thalamus, etiologies include microhemorrhage from hypertension or old hemorrhagic lacunar infarct. I called Dr. Cronin Neurologist at [facility] to report above MRI findings and pt's medical history for consult of d/c medical management. Dr. Cronin recommend pt may have Aspirin 81 mg daily and low dosage of statin for d/c home today. pt is prescribed 81mg Aspirin daily and 20mg Lipitor daily for d/c to home, followup neurologist as out-pt. 2, DM2 stable, continue home regimen and followup PCP 3, uncontrolled HTN stable, continue home regimen and followup PCP 4, abnormal PSA test followup PCP for further management 5, HLD pt has significant elevated Triglyceride level and elevated Cholesterol level continue home meds regimen and prescribed Lipitor for pt 6, CKD stage 4 stable, pt is followup Dr Toribio now as his visit schedule - ALLERGIES Allergies/Adverse Reactions: Allergies Allergy/AdvReac Type Severity Reaction Status Date / Time No Known Drug Allergies Allergy Verified 10/01/18 16:10 - MEDICATIONS Home Medications: Ambulatory Orders Medication Instructions Recorded Confirmed Clotrimazole/Betamethasone Crm 45 gm TOP BID PRN 02/26/18 10/02/18 [Lotrisone Cream] Fenofibrate 160 mg PO DAILY 02/26/18 10/02/18 Gabapentin 300 mg PO BID 02/26/18 10/02/18 hydrALAZINE [Apresoline] 50 mg PO QDBREAKFAST 02/26/18 10/02/18 Aspirin 81 mg PO DAILY #15 tab.chew 10/02/18 Atorvastatin [Lipitor] 20 mg PO DAILY #30 tablet 10/02/18 Carvedilol 25 mg PO BID 10/02/18 10/02/18 Cetirizine [ZyrTEC] 10 mg PO DAILY 10/02/18 10/02/18 Fluocinonide 1 applic TOP BID PRN 10/02/18 10/02/18 Fluticasone [Flonase] 1 sprays MARK BID 10/02/18 10/02/18 Insulin NPH Hum/Reg Insulin Hm 60 unit SUBQ BIDWM 10/02/18 10/02/18 [Humulin 70-30 Vial] amLODIPine [Norvasc] 5 mg PO DAILY 10/02/18 10/02/18 hydrALAZINE [Apresoline] 25 mg PO QDLUNCH 10/02/18 10/02/18 hydrALAZINE [Apresoline] 25 mg PO QPM 10/02/18 10/02/18 - PHYSICAL EXAM AT DISCHARGE General Appearance: positive: No acute distress, Alert. negative: Lethargic Eyes Bilateral: positive: Normal inspection, PERRL, No lid inflammation, Conjunctivae nml ENT: positive: ENT inspection nml, Pharynx nml, No signs of dehydration. negative: Purulent nasal drainage, Pharyngeal erythema, Oral lesions Neck: positive: Nml inspection, Thyroid nml, No JVD, Trachea midline. negative: Thyromegaly, Lymphadenopathy (R), Lymphadenopathy (L), Stiff neck, Swelling/bruising, Tracheal deviation Respiratory: positive: Chest non-tender, No respiratory distress, Breath sounds nml. negative: Wheezes, Rales, Rhonchi Cardiovascular: positive: Regular rate & rhythm, No murmur, No gallop. negative: Irregularly irregular, Extrasystoles, Tachycardia, Bradycardia, JVD present, Systolic murmur, Diastolic murmur Peripheral Pulses: positive: 2+ Abdomen: positive: Non-tender, No organomegaly, Nml bowel sounds, No distention. negative: Tenderness, Guarding, Rebound Back: positive: Nml inspection. negative: CVA tenderness (R), CVA tenderness (L) Skin: positive: Color nml, No rash, Warm, Dry. negative: Cyanosis, Diaphoresis, Pallor, Skin rash Extremities: positive: Non-tender, Full ROM, Nml appearance. negative: Calf tenderness, Joint swelling, Mayo's sign/cords Neurologic/Psychiatric: positive: Oriented x3, Motor nml, Sensation nml, Mood/affect nml. negative: Weakness, Sensory loss, Facial droop, Slurred/abnml speech, Depressed mood/affect - LABS Result Diagrams: 10/02/18 05:00 10/02/18 05:00 - QUALITY (Female Hip Fx Only) Was patient sent home on osteoporosis medication?: No - FOLLOW UP Follow Up: you may followup your PCP in one week, followup neurologist as out-pt, followup your brush machine setter as your schedule. you was found to have a stroke. Neurologist in [place] was called. you are recommended to have low dosage of Aspirin and Lipitor. Should your symptoms return or worsen, you may present ER or call 911 or call your PCP for help - TIME SPENT Time Spent in Discharge (Minutes): 60
[2018-10-02] MEDS ORDERED: ATORVASTATIN 40 MG TABLET PO SCH (21:00)
== END 2018-10-02 13:00 | disposition home or self-care (01) ==
LOC: ED 15:55 → MS2 18:14
PROVIDERS: ADMIT Nurse Practitioner Gerontology; ATTEND Nurse Practitioner Gerontology
DX: I63.9 Cerebral infarction, unspecified (principal); R47.81 Slurred speech; R29.701 NIHSS score 1; E11.65 Type 2 diabetes mellitus with hyperglycemia; I12.9 Hypertensive chronic kidney disease with stage 1 through stage 4 chronic kidney disease, or unspecified chronic kidney disease; N18.4 Chronic kidney disease, stage 4 (severe); E11.22 Type 2 diabetes mellitus with diabetic chronic kidney disease; E11.319 Type 2 diabetes mellitus with unspecified diabetic retinopathy without macular edema; E11.40 Type 2 diabetes mellitus with diabetic neuropathy, unspecified; E78.2 Mixed hyperlipidemia; I44.7 Left bundle-branch block, unspecified; R00.0 Tachycardia, unspecified; R33.9 Retention of urine, unspecified; R35.1 Nocturia; R39.15 Urgency of urination; R35.0 Frequency of micturition; R97.20 Elevated prostate specific antigen [PSA]; Z66 Do not resuscitate; Z79.4 Long term (current) use of insulin; Z87.891 Personal history of nicotine dependence; Z72.89 Other problems related to lifestyle
CPT/HCPCS: 36415; 70450; 70551; 80048; 80053; 80061; 83036; 83690; 83721; 83735; 84153; 84154; 84484; 85025; 85610; 92610; 93005; 93306; 93880; 96372; 99284; A9270; G0378; J1815

== ENCOUNTER 2018-10-10 08:57 | Outpatient (CLI) | payer MEDICARE, OTHER ==
[2018-10-10 13:11] LABS: ALBUMIN 4.1 g/dL (3.2-5.5); ALBUMIN/GLOBULIN RATIO 1.2 (1.0-2.2); BILIRUBIN,TOTAL 0.5 mg/dL (0.2-1.0); CALCIUM 9.7 mg/dL (8.5-10.3); CREATININE 3.2 mg/dL (0.6-1.2); TOTAL PROTEIN 7.6 g/dL (6.7-8.2)
[2018-10-10 13:41] LABS: HB2 TOTAL 14.5 g/dL; HEMOGLOBIN A1C 0.93 g/dL
== END 2018-10-10 08:58 | disposition home or self-care (01) ==
LOC: LAB.WCP 08:57
PROVIDERS: ATTEND Family Medicine
DX: J32.8 Other chronic sinusitis (principal); E11.40 Type 2 diabetes mellitus with diabetic neuropathy, unspecified; H69.83 Other specified disorders of Eustachian tube, bilateral
CPT/HCPCS: 36415; 80053; 83036

== ENCOUNTER 2019-02-04 08:00 | Outpatient (CLI) | payer MEDICARE, OTHER ==
[2019-02-04 12:08] LABS: CALCIUM 9.3 mg/dL (8.5-10.3); CREATININE 3.2 mg/dL (0.6-1.2)
[2019-02-04 13:40] LABS: HB2 TOTAL 12.5 g/dL; HEMOGLOBIN A1C 0.75 g/dL; HEMOGLOBIN A1C % 7.6 % (4.6-6.2)
== END 2019-02-04 23:59 | disposition home or self-care (01) ==
LOC: LAB.WCP 08:00
PROVIDERS: ATTEND Family Medicine
DX: E11.9 Type 2 diabetes mellitus without complications (principal)
CPT/HCPCS: 36415; 80048; 83036

== ENCOUNTER 2019-04-07 08:00 | Outpatient (CLI) | payer MEDICARE, OTHER ==
[2019-04-07 14:37] LABS: HGB - HEMOGLOBIN 12.3 g/dL (14.0-18.0); MEAN CORPUSCULAR HEMOGLOBIN 28.5 pg (27.0-31.0); MEAN CORPUSCULAR VOLUME 88.9 fL (80.0-94.0); MEAN PLATELET VOLUME 10.2 fL (7.4-11.4); RED BLOOD COUNT 4.32 10^6/uL (4.70-6.10); RED CELL DISTRIBUTION WIDTH 13.2 % (12.0-15.0); WHITE BLOOD COUNT 6.5 x10^3/uL (4.8-10.8)
[2019-04-07 14:43] LABS: CALCIUM 9.2 mg/dL (8.5-10.3); CREATININE 3.4 mg/dL (0.6-1.2); PHOSPHORUS 3.4 mg/dL (2.5-4.6)
== END 2019-04-07 23:59 | disposition home or self-care (01) ==
LOC: LAB.WCP 08:00
PROVIDERS: ATTEND Internal Medicine Nephrology
DX: N05.9 Unspecified nephritic syndrome with unspecified morphologic changes (principal); N18.9 Chronic kidney disease, unspecified; D70.9 Neutropenia, unspecified; D63.1 Anemia in chronic kidney disease; E83.30 Disorder of phosphorus metabolism, unspecified; N25.81 Secondary hyperparathyroidism of renal origin
CPT/HCPCS: 36415; 80048; 83970; 84100; 85027

== ENCOUNTER 2019-04-21 09:18 | Outpatient (CLI) | payer MEDICARE, OTHER ==
[2019-04-21 13:07] LABS: CALCIUM 9.3 mg/dL (8.5-10.3); CREATININE 3.2 mg/dL (0.6-1.2)
[2019-04-21 13:50] LABS: HB2 TOTAL 12.2 g/dL; HEMOGLOBIN A1C 0.82 g/dL; HEMOGLOBIN A1C % 8.3 % (4.6-6.2)
== END 2019-04-21 23:59 | disposition home or self-care (01) ==
LOC: LAB.WCP 09:18
PROVIDERS: ATTEND Internal Medicine Nephrology
DX: N05.9 Unspecified nephritic syndrome with unspecified morphologic changes (principal); E11.9 Type 2 diabetes mellitus without complications
CPT/HCPCS: 36415; 80048; 80053; 83036

== ENCOUNTER 2019-06-11 11:32 | Outpatient (CLI) | payer MEDICARE, OTHER ==
[2019-06-11 19:38] LABS: HB2 TOTAL 12.3 g/dL; HEMOGLOBIN A1C 0.68 g/dL; HEMOGLOBIN A1C % 7.2 % (4.6-6.2)
[2019-06-11 19:40] LABS: CALCIUM 9.1 mg/dL (8.5-10.3); CREATININE 2.8 mg/dL (0.6-1.2)
[2019-06-11 20:19] LABS: CREATININE,URINE 135.8 mg/dL; MICROALBUM/CREATININE RATIO,UR 2229.7 ug/mg (<30.0); MICROALBUMIN,URINE 302.8 mg/dL (0-300.0)
== END 2019-06-11 23:59 | disposition home or self-care (01) ==
LOC: LAB.WCP 11:32
PROVIDERS: ATTEND Family Medicine
DX: E11.9 Type 2 diabetes mellitus without complications (principal)
CPT/HCPCS: 36415; 80048; 82043; 82570; 83036

== ENCOUNTER 2019-09-08 08:00 | Outpatient (CLI) | payer MEDICARE, OTHER ==
[2019-09-08 14:15] LABS: HGB - HEMOGLOBIN 12.7 g/dL (14.0-18.0); MEAN CORPUSCULAR HEMOGLOBIN 30.1 pg (27.0-31.0); MEAN CORPUSCULAR HGB CONC 33.5 g/dL (32.0-36.0); MEAN CORPUSCULAR VOLUME 89.8 fL (80.0-94.0); MEAN PLATELET VOLUME 9.7 fL (7.4-11.4); RED BLOOD COUNT 4.22 10^6/uL (4.70-6.10); RED CELL DISTRIBUTION WIDTH 15.1 % (12.0-15.0); WHITE BLOOD COUNT 8.8 x10^3/uL (4.8-10.8)
[2019-09-08 14:23] LABS: CREATININE 3.1 mg/dL (0.6-1.2)
== END 2019-09-08 23:59 | disposition home or self-care (01) ==
LOC: LAB.WCP 08:00
PROVIDERS: ATTEND Internal Medicine Nephrology
DX: N05.9 Unspecified nephritic syndrome with unspecified morphologic changes (principal); D70.9 Neutropenia, unspecified; D63.1 Anemia in chronic kidney disease; N18.9 Chronic kidney disease, unspecified
CPT/HCPCS: 36415; 80048; 85027

== ENCOUNTER 2019-09-24 16:41 | Outpatient (CLI) | payer MEDICARE, OTHER | END 2019-09-24 16:42 | disposition home or self-care (01) | LOC: COV 16:41 | PROVIDERS: ATTEND Family Medicine | DX: R05 Cough (principal); R06.02 Shortness of breath; R53.83 Other fatigue; J02.9 Acute pharyngitis, unspecified | CPT/HCPCS: 81599 ==

== ENCOUNTER 2019-10-01 08:00 | Outpatient (CLI) | payer MEDICARE, OTHER ==
[2019-10-01 13:29] LABS: ALBUMIN 3.4 g/dL (3.2-5.5); ALBUMIN/GLOBULIN RATIO 0.9 (1.0-2.2); BILIRUBIN,TOTAL 0.6 mg/dL (0.2-1.0); CALCIUM 8.9 mg/dL (8.5-10.3); CREATININE 2.9 mg/dL (0.6-1.2); URIC ACID 7.3 mg/dL (2.6-7.2)
[2019-10-01 13:34] LABS: BASOPHILS # (AUTO) 0.1 10^3/uL (0.0-0.1); BASOPHILS % (AUTO) 0.7 %; EOSINOPHILS # (AUTO) 1.8 10^3/uL (0.0-0.7); EOSINOPHILS % (AUTO) 17.5 %; HGB - HEMOGLOBIN 13.1 g/dL (14.0-18.0); LYMPHOCYTES # (AUTO) 2.1 10^3/uL (1.5-3.5); LYMPHOCYTES % (AUTO) 20.7 %; MEAN CORPUSCULAR HEMOGLOBIN 27.5 pg (27.0-31.0); MEAN CORPUSCULAR HGB CONC 31.4 g/dL (32.0-36.0); MEAN CORPUSCULAR VOLUME 87.6 fL (80.0-94.0); MEAN PLATELET VOLUME 8.9 fL (7.4-11.4); MONOCYTES # (AUTO) 0.6 10^3/uL (0.0-1.0); MONOCYTES % (AUTO) 6.1 %; NEUTROPHILS # (AUTO) 5.5 10^3/uL (1.5-6.6); NEUTROPHILS % (AUTO) 54.4 %; PLT - PLATELET COUNT 221 10^3/uL (130-450); RED BLOOD COUNT 4.76 10^6/uL (4.70-6.10); RED CELL DISTRIBUTION WIDTH 14.9 % (12.0-15.0); WHITE BLOOD COUNT 10.1 x10^3/uL (4.8-10.8)
[2019-10-01 13:42] LABS: HB2 TOTAL 13.6 g/dL; HEMOGLOBIN A1C 0.85 g/dL; HEMOGLOBIN A1C % 7.9 % (4.6-6.2)
[2019-10-01 14:20] LABS: RBC MORPHOLOGY (MULTIPLE) 2+ ANISOCYTOSIS (NORMAL)
[2019-10-01 14:52] LABS: MICROALBUMIN,URINE 297.8 mg/dL (0-300.0)
== END 2019-10-01 23:59 | disposition home or self-care (01) ==
LOC: LAB.WCP 08:00
PROVIDERS: ATTEND Family Medicine
DX: E11.40 Type 2 diabetes mellitus with diabetic neuropathy, unspecified (principal); I10 Essential (primary) hypertension; M13.861 Other specified arthritis, right knee; Z71.89 Other specified counseling
CPT/HCPCS: 36415; 80048; 80053; 82043; 82570; 83036; 84550; 85025

== ENCOUNTER 2019-10-01 08:06 | Outpatient (CLI) | payer MEDICARE, OTHER ==
--- NOTE | 2019-10-02 02:48 | XRAY Report ---
Reason: ACUTE BRONCHITIS Procedure Date: 10/01/2019 Accession Number: [id number] / [id number] Procedure: WCP - Chest 2 View X-Ray CPT Code: 35662 Final Report FULL RESULT: EXAM: CHEST RADIOGRAPHY EXAM DATE: 10/01/2019 08:06 AM. CLINICAL HISTORY: ACUTE BRONCHITIS. Cough. COMPARISON: None. TECHNIQUE: 2 views. FINDINGS: Lungs/Pleura: No alveolar consolidation or pleural effusion seen. No pneumothorax. Mediastinum: Heart and mediastinal contours are unremarkable. Other: None. IMPRESSION: 1. No acute abnormality seen in the chest. RADIA
== END 2019-10-01 23:59 | disposition home or self-care (01) ==
LOC: DI.WCP 08:06
PROVIDERS: ATTEND Family Medicine
DX: J20.9 Acute bronchitis, unspecified (principal); R05 Cough; E11.40 Type 2 diabetes mellitus with diabetic neuropathy, unspecified; I10 Essential (primary) hypertension; M13.861 Other specified arthritis, right knee; Z71.89 Other specified counseling
CPT/HCPCS: 36415; 71046; 80048; 80053; 82043; 82570; 83036; 84550; 85025

== ENCOUNTER 2019-10-14 11:29 | Outpatient (CLI) | payer MEDICARE, OTHER ==
--- NOTE | 2019-10-14 12:15 | XRAY Report ---
Reason: ARTHRITIS,RT KNEE Procedure Date: 10/14/2019 Accession Number: [id number] / [id number] Procedure: XR - Knee 3 View RT CPT Code: Final Report FULL RESULT: PROCEDURE: Knee 3 View RT INDICATIONS: ARTHRITIS,RT KNEE TECHNIQUE: 3 views of the right knee(s) were acquired. COMPARISON: None. FINDINGS: Bones: No fractures or dislocations. Mild to moderate osteoarthritic changes are noted in medial femoral tibial compartment and patellofemoral compartment. No suspicious bony lesions. Soft tissues: Moderate suprapatellar joint effusion is seen.. No suspicious soft tissue calcifications. 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 Moderate amount of joint effusion. No fracture or dislocation. Reviewed by: Brennen Sykes MD on 10/14/2019 12:14 PM PDT Approved by: Brennen Sykes MD on 10/14/2019 12:14 PM PDT Station ID: [id number]
== END 2019-10-14 11:30 | disposition home or self-care (01) ==
LOC: DI 11:29
PROVIDERS: ATTEND Family Medicine
DX: M13.861 Other specified arthritis, right knee (principal)

== ENCOUNTER → 2020-02-03 | Outpatient (CLI) | payer MEDICARE, OTHER ==
[2020-02-03 13:27] LABS: CALCIUM 9.2 mg/dL (8.5-10.3); CREATININE 3.4 mg/dL (0.6-1.2)
[2020-02-03 13:54] LABS: HEMOGLOBIN A1c% 7.8 % (4.27-6.07)
[2020-02-03 14:17] LABS: CREATININE,URINE 66.5 mg/dL; MICROALBUM/CREATININE RATIO,UR 3407.5 ug/mg (<30.0); MICROALBUMIN,URINE 226.6 mg/dL (0-300.0)
== END ==
LOC: LAB.WCP 08:00
PROVIDERS: ATTEND Internal Medicine Nephrology
DX: E11.9 Type 2 diabetes mellitus without complications (principal); I10 Essential (primary) hypertension; N05.9 Unspecified nephritic syndrome with unspecified morphologic changes
CPT/HCPCS: 36415; 80048; 82043; 82570; 83036

== ENCOUNTER 2020-03-22 17:11 | Emergency (ER) | payer MEDICARE, OTHER ==
--- NOTE | 2020-03-22 18:10 | ED Physician Documentation ---
PD HPI ABD PAIN - Stated complaint Stated Complaint: CONSTIPATION - Chief complaint Chief Complaint: Abd Pain - History obtained from History obtained from: Patient (69 yo gentleman with history of longstanding nephropathy had a very hard bowel movement for 2 days straight about 6 or 5 days ago and then subsequently has not had a bowel movement since and is describing a lot of rectal pressure.) Review of Systems Constitutional: denies: Fever, Chills, Fatigue Respiratory: denies: Dyspnea, Cough GI: denies: Abdominal Pain, Nausea PD PAST MEDICAL HISTORY - Past Medical History Past Medical History: Yes Cardiovascular: Hypertension, High cholesterol Neuro: Other Endocrine/Autoimmune: Type 2 diabetes : Renal insuffiency Psych: None Musculoskeletal: None - Past Surgical History Past Surgical History: Yes - Present Medications Home Medications: Ambulatory Orders Medication Instructions Recorded Confirmed Clotrimazole/Betamethasone Crm 45 gm TOP BID PRN 02/26/18 10/02/18 [Lotrisone Cream] Fenofibrate 160 mg PO DAILY 02/26/18 10/02/18 Gabapentin 300 mg PO BID 02/26/18 10/02/18 hydrALAZINE [Apresoline] 50 mg PO QDBREAKFAST 02/26/18 10/02/18 Aspirin 81 mg PO DAILY #15 tab.chew 10/02/18 Atorvastatin [Lipitor] 20 mg PO DAILY #30 tablet 10/02/18 Cetirizine [ZyrTEC] 10 mg PO DAILY 10/02/18 10/02/18 Fluocinonide 1 applic TOP BID PRN 10/02/18 10/02/18 Fluticasone [Flonase] 1 sprays MARK BID 10/02/18 10/02/18 Insulin NPH Hum/Reg Insulin Hm 60 unit SUBQ BIDWM 10/02/18 10/02/18 [Humulin 70-30 Vial] amLODIPine [Norvasc] 5 mg PO DAILY 10/02/18 10/02/18 carvediloL [Carvedilol] 25 mg PO BID 10/02/18 10/02/18 hydrALAZINE [Apresoline] 25 mg PO QDLUNCH 10/02/18 10/02/18 hydrALAZINE [Apresoline] 25 mg PO QPM 10/02/18 10/02/18 polyethylene glycoL 3350 [Miralax] 17 gm PO DAILY PRN #1 bottle 03/22/20 - Allergies Allergies/Adverse Reactions: Allergies Allergy/AdvReac Type Severity Reaction Status Date / Time No Known Drug Allergies Allergy Verified 03/22/20 17:30 - Social History Does the pt smoke?: No Smoking Status: Never smoker Does the pt drink ETOH?: No Does the pt have substance abuse?: No - Immunizations Immunizations are current?: Yes - POLST Patient has POLST: No PD ED PE NORMAL - Vitals Vital signs reviewed: Yes - General General: Alert and oriented X 3, No acute distress - HEENT HEENT: PERRL, EOMI - Abdomen Abdomen: Normal bowel sounds, Soft, Non tender - Rectal Rectal: Other (A large firm brown fecal impaction that was partially disimpacted during initial evaluation and then an enema was placed.) - Extremities Extremities: No edema, No calf tenderness / cord - Neuro Neuro: Alert and oriented X 3, Normal speech Results - Vitals Vitals: Vital Signs - 24 hr 03/22/20 03/22/20 03/22/20 17:28 18:36 19:00 Temperature 36.2 C L 36.6 C Heart Rate 76 70 73 Respiratory 20 16 16 Rate Blood Pressure 167/70 H 165/77 H 165/74 H O2 Saturation 96 98 96 Oxygen O2 Source Room air - Labs Labs: Laboratory Tests 03/22/20 03/22/20 03/22/20 18:00 18:00 18:23 WBC 11.1 H RBC 4.61 L Hgb 13.0 L Hct 38.8 L MCV 84.2 MCH 28.2 MCHC 33.5 RDW 13.8 Plt Count 199 MPV 9.2 Neut # (Auto) Not Reportable Lymph # (Auto) Not Reportable [place] # (Auto) Not Reportable Eos # (Auto) Not Reportable Baso # (Auto) Not Reportable Absolute Nucleated RBC Not Reportable Total Counted 100 Band Neuts % (Manual) 2 Abnorm Lymph % (Manual) 0 Nucleated RBC % Not Reportable Neutrophils # (Manual) 7.8 H Lymphocytes # (Manual) 0.9 L Monocytes # (Manual) 0.7 Eosinophils # (Manual) 1.8 H Basophils # (Manual) 0.0 Differential Comment MANUAL DIFFERENTIAL Platelet Estimate NORMAL (130-450,000) Platelet Morphology NORMAL APPEARANCE RBC Morph Micro Appear NORMAL APPEARANCE Sodium 134 L Potassium 4.0 Chloride 103 Carbon Dioxide 21 Anion Gap 10.0 BUN 43 H Creatinine 3.9 H Estimated GFR (MDRD) 15 L Glucose 187 H Calcium 9.0 Total Bilirubin 0.8 AST 23 ALT 26 Alkaline Phosphatase 76 Total Protein 7.6 Albumin 4.1 Globulin 3.5 Albumin/Globulin Ratio 1.2 Lipase 30 Urine Color YELLOW Urine Clarity CLEAR Urine pH 6.0 Ur Specific [place] 1.020 Urine Protein >=300 H Urine Glucose (UA) 100 H Urine Ketones NEGATIVE Urine Occult Blood NEGATIVE Urine Nitrite NEGATIVE Urine Bilirubin NEGATIVE Urine Urobilinogen 0.2 (NORMAL) Ur Leukocyte Esterase NEGATIVE Urine RBC None Seen Urine WBC 0-3 Ur Squamous Epith Cells NONE SEEN Urine Bacteria Rare Ur Microscopic Review INDICATED Urine Culture Comments NOT INDICATED PD MEDICAL DECISION MAKING - ED course ED course: 69-year-old gentleman with history of chronic nephropathy presents with a fecal impaction. After some manual disimpaction and enema he had a large bowel movement and his symptoms were resolved. His renal function is slowly declining and this was discussed with him, he is following with a swimming coach or instructor. Departure - Departure Disposition: 01 Home, Self Care Clinical Impression: Fecal impaction Condition: Good Record reviewed to determine appropriate education?: Yes Instructions: ED Impaction Fecal Treated Prescriptions: polyethylene glycoL 3350 [Miralax] 17 gm PO DAILY PRN #1 bottle PRN Reason: Constipation Comments: Your kidney function continues to slowly worsen, make sure you are following up with your swimming coach or instructor. Return if worsening. Discharge Date/Time: 03/22/20 19:06
[2020-03-22 18:18] LABS: BASOPHILS % (AUTO) 0.5 %; EOSINOPHILS % (AUTO) 9.8 %; MEAN CORPUSCULAR HEMOGLOBIN 28.2 pg (27.0-31.0); MEAN CORPUSCULAR HGB CONC 33.5 g/dL (32.0-36.0); MEAN CORPUSCULAR VOLUME 84.2 fL (80.0-94.0); MEAN PLATELET VOLUME 9.2 fL (7.4-11.4); MONOCYTES % (AUTO) 5.4 %; NEUTROPHILS % (AUTO) 69.2 %; PLT - PLATELET COUNT 199 10^3/uL (130-450); RED BLOOD COUNT 4.61 10^6/uL (4.70-6.10); RED CELL DISTRIBUTION WIDTH 13.8 % (12.0-15.0); WHITE BLOOD COUNT 11.1 x10^3/uL (4.8-10.8)
[2020-03-22 18:22] LABS: ABNORMAL LYMPHS % (MANUAL) 0 %
[2020-03-22 18:30] LABS: ALBUMIN 4.1 g/dL (3.2-5.5); ALBUMIN/GLOBULIN RATIO 1.2 (1.0-2.2); BILIRUBIN,TOTAL 0.8 mg/dL (0.2-1.0); CREATININE 3.9 mg/dL (0.6-1.2); TOTAL PROTEIN 7.6 g/dL (6.7-8.2)
[2020-03-22 18:45] LABS: BAND NEUTROPHILS % (MANUAL) 2 %; DIFFERENTIAL COMMENT MANUAL DIFFERENTIAL; EOSINOPHILS # (MANUAL) 1.8 10^3/uL (0-0.7); LYMPHOCYTES # (MANUAL) 0.9 10^3/uL (1.5-3.5); LYMPHOCYTES % (MANUAL) 8 %; MONOCYTES # (MANUAL) 0.7 10^3/uL (0.0-1.0); PLATELET ESTIMATE, MANUAL NORMAL (130-450,000) (NORMAL); PLATELET MORPHOLOGY NORMAL APPEARANCE (NORMAL); RBC MORPHOLOGY (MULTIPLE) NORMAL APPEARANCE (NORMAL)
[2020-03-22 18:51] LABS: BILIRUBIN,URINE NEGATIVE (NEGATIVE); GLUCOSE, URINE (UA) 100 mg/dL (NEGATIVE); KETONES,URINE (UA) NEGATIVE (NEGATIVE); LEUKOCYTE ESTERASE, URINE NEGATIVE (NEGATIVE); NITRITE,URINE NEGATIVE (NEGATIVE); OCCULT BLOOD,URINE NEGATIVE (NEGATIVE); PROTEIN,URINE >=300 mg/dL (NEGATIVE); UROBILINOGEN,URINE 0.2 (NORMAL) E.U./dL (NORMAL)
[2020-03-22 18:52] LABS: CLARITY,URINE CLEAR (CLEAR)
[2020-03-22 19:01] LABS: BACTERIA,URINE Rare /HPF (None Seen); RBC,URINE None Seen /HPF (0-5); SQUAMOUS EPITHELIAL CELL,UR NONE SEEN (<= Few)
[2020-03-22 19:02] VITALS: BP 165/74
== END 2020-03-22 19:06 | disposition home or self-care (01) ==
LOC: ED 17:11
DX: K56.41 Fecal impaction (principal); I12.9 Hypertensive chronic kidney disease with stage 1 through stage 4 chronic kidney disease, or unspecified chronic kidney disease; E11.22 Type 2 diabetes mellitus with diabetic chronic kidney disease; N18.9 Chronic kidney disease, unspecified; Z79.4 Long term (current) use of insulin; Z79.82 Long term (current) use of aspirin
CPT/HCPCS: 36415; 80053; 81001; 81003; 83690; 85025; 87086; 99283; 99284

== ENCOUNTER 2020-04-26 08:00 | Outpatient (CLI) | payer MEDICARE, OTHER ==
[2020-04-26 12:03] LABS: HGB - HEMOGLOBIN 12.6 g/dL (14.0-18.0); MEAN CORPUSCULAR HEMOGLOBIN 27.9 pg (27.0-31.0); MEAN CORPUSCULAR HGB CONC 32.2 g/dL (32.0-36.0); MEAN CORPUSCULAR VOLUME 86.7 fL (80.0-94.0); MEAN PLATELET VOLUME 9.5 fL (7.4-11.4); RED BLOOD COUNT 4.51 10^6/uL (4.70-6.10); WHITE BLOOD COUNT 7.1 x10^3/uL (4.8-10.8)
[2020-04-26 12:43] LABS: CALCIUM 9.2 mg/dL (8.5-10.3); CREATININE 3.5 mg/dL (0.6-1.2); PHOSPHORUS 4.5 mg/dL (2.5-4.6)
[2020-04-26 13:13] LABS: CREATININE,URINE 95.9 mg/dL; PROTEIN/CREATININE RATIO,URINE 2.9 (<=0.2)
== END 2020-04-26 08:01 | disposition home or self-care (01) ==
LOC: LAB.WCP 08:00
PROVIDERS: ATTEND Internal Medicine Nephrology
DX: N05.9 Unspecified nephritic syndrome with unspecified morphologic changes (principal); D70.9 Neutropenia, unspecified; D63.1 Anemia in chronic kidney disease
CPT/HCPCS: 36415; 80048; 82570; 83970; 84100; 84156; 85027

== ENCOUNTER 2020-07-23 08:00 | Outpatient (CLI) | payer MEDICARE, OTHER ==
[2020-07-23 12:12] LABS: MEAN CORPUSCULAR HGB CONC 32.4 g/dL (32.0-36.0); MEAN CORPUSCULAR VOLUME 86.2 fL (80.0-94.0); MEAN PLATELET VOLUME 9.8 fL (7.4-11.4); RED BLOOD COUNT 4.29 10^6/uL (4.70-6.10); RED CELL DISTRIBUTION WIDTH 14.2 % (12.0-15.0); WHITE BLOOD COUNT 8.2 x10^3/uL (4.8-10.8)
[2020-07-23 12:21] LABS: ESTIMATED AVERAGE GLUCOSE 180 mg/dL (70-100); HEMOGLOBIN A1c% 7.9 % (4.27-6.07)
[2020-07-23 12:32] LABS: BUN - BLOOD UREA NITROGEN 49 mg/dL (6-20); CALCIUM 9.1 mg/dL (8.5-10.3); CARBON DIOXIDE - CO2 21 mmol/L (21-32); CHLORIDE 106 mmol/L (101-111); CHOL/HDL RATIO 7.3 (<5.0); CHOLESTEROL 191 mg/dL; GFR - MDRD 15 (>89); GLUCOSE 237 mg/dL (70-100); HDL CHOLESTEROL 26 mg/dL; SODIUM 137 mmol/L (135-145); TRIGLYCERIDES 444 mg/dL
[2020-07-23 13:22] LABS: LDL CHOLESTEROL,DIRECT 75 mg/dL; LDLD/HDL RATIO 2.9 (<3.6)
== END 2020-07-23 23:59 | disposition home or self-care (01) ==
LOC: LAB.WCP 08:00
PROVIDERS: ATTEND Internal Medicine
DX: E11.9 Type 2 diabetes mellitus without complications (principal); D70.9 Neutropenia, unspecified; N05.9 Unspecified nephritic syndrome with unspecified morphologic changes; D63.1 Anemia in chronic kidney disease
CPT/HCPCS: 36415; 80048; 80061; 83036; 83721; 85027

== ENCOUNTER 2020-08-24 08:00 | Outpatient (CLI) | payer MEDICARE, OTHER ==
[2020-08-24 13:31] LABS: CALCIUM 9.2 mg/dL (8.5-10.3); CREATININE 3.9 mg/dL (0.6-1.2); POTASSIUM 4.4 mmol/L (3.5-5.0)
== END 2020-08-24 23:59 | disposition home or self-care (01) ==
LOC: LAB.WCP 08:00
PROVIDERS: ATTEND Internal Medicine
DX: N05.9 Unspecified nephritic syndrome with unspecified morphologic changes (principal)
CPT/HCPCS: 36415; 80048

== ENCOUNTER 2020-09-13 08:00 | Outpatient (CLI) | payer MEDICARE, OTHER ==
[2020-09-13 18:17] LABS: BASOPHILS % (AUTO) 0.5 %; EOSINOPHILS # (AUTO) 0.9 10^3/uL (0.0-0.7); EOSINOPHILS % (AUTO) 11.7 %; HCT - HEMATOCRIT 36.1 % (42.0-52.0); LYMPHOCYTES # (AUTO) 1.6 10^3/uL (1.5-3.5); MEAN CORPUSCULAR HEMOGLOBIN 27.3 pg (27.0-31.0); MEAN CORPUSCULAR HGB CONC 30.5 g/dL (32.0-36.0); MEAN CORPUSCULAR VOLUME 89.6 fL (80.0-94.0); MEAN PLATELET VOLUME 9.9 fL (7.4-11.4); MONOCYTES # (AUTO) 0.5 10^3/uL (0.0-1.0); NEUTROPHILS # (AUTO) 4.5 10^3/uL (1.5-6.6); NEUTROPHILS % (AUTO) 59.4 %; PLT - PLATELET COUNT 170 10^3/uL (130-450); RED BLOOD COUNT 4.03 10^6/uL (4.70-6.10); WHITE BLOOD COUNT 7.6 x10^3/uL (4.8-10.8)
[2020-09-13 18:55] LABS: ALBUMIN 3.7 g/dL (3.2-5.5); ALBUMIN/GLOBULIN RATIO 1.3 (1.0-2.2); ALKALINE PHOSPHATASE 68 IU/L (42-121); ALT ALANINE AMINOTRANSFERASE 19 IU/L (10-60); AST ASPARTATE AMINOTRANSFERASE 18 IU/L (10-42); BILIRUBIN,TOTAL 0.8 mg/dL (0.2-1.0); BUN - BLOOD UREA NITROGEN 56 mg/dL (6-20); CALCIUM 8.8 mg/dL (8.5-10.3); CARBON DIOXIDE - CO2 19 mmol/L (21-32); CHLORIDE 111 mmol/L (101-111); CHOL/HDL RATIO 5.9 (<5.0); CHOLESTEROL 147 mg/dL; CREATININE 4.3 mg/dL (0.6-1.2); GFR - MDRD 14 (>89); GLUCOSE 246 mg/dL (70-100); HDL CHOLESTEROL 25 mg/dL; POTASSIUM 4.1 mmol/L (3.5-5.0); SODIUM 140 mmol/L (135-145); TOTAL PROTEIN 6.6 g/dL (6.7-8.2); TRIGLYCERIDES 452 mg/dL
[2020-09-13 19:19] LABS: LDL CHOLESTEROL,DIRECT 51 mg/dL
[2020-09-13 20:16] LABS: ESTIMATED AVERAGE GLUCOSE 163 mg/dL (70-100); HEMOGLOBIN A1c% 7.3 % (4.27-6.07)
== END 2020-09-13 23:59 | disposition home or self-care (01) ==
LOC: LAB.WCP 08:00
PROVIDERS: ATTEND Internal Medicine
DX: D70.9 Neutropenia, unspecified (principal); E11.29 Type 2 diabetes mellitus with other diabetic kidney complication; D63.1 Anemia in chronic kidney disease
CPT/HCPCS: 36415; 80053; 80061; 83036; 83721; 85025

== ENCOUNTER 2020-10-02 12:46 | Emergency (ER) | payer MEDICARE, OTHER ==
--- OUTSIDE RECORDS SUMMARY | 2020-10-02 13:22 | EXTERNAL MEDICAL SUMMARY RPT | Continuity of Care Document ---
:1950 Demographics Phone Unavailable Preferred Language Unknown Marital Status Unknown [employer] Affiliation Unknown Race Unknown Ethnic Group Unknown Author Organization [facility] Address [address] [phone] Phone Allergies Encounters Medications Problems Results
--- NOTE | 2020-10-02 13:55 | XRAY Report ---
PROCEDURE: Chest 1 View X-Ray INDICATIONS: Chest pain TECHNIQUE: One view of the chest was acquired. COMPARISON: 10/01/2019 FINDINGS: Surgical changes and devices: None. Lungs and pleura: No pleural effusions or pneumothorax. Lungs are clear. Mediastinum: Mediastinal contours appear normal. Heart size is normal. Bones and chest wall: No suspicious bony lesions. Overlying soft tissues appear unremarkable. IMPRESSION: Portable chest within normal limits for age. Reviewed by: Eligio Arenas MD on 10/02/2020 12:54 PM AKDT Approved by: Eligio Arenas MD on 10/02/2020 12:54 PM AKDT Station ID: [id number]
[2020-10-02 14:12] LABS: BASOPHILS % (AUTO) 0.3 %; EOSINOPHILS # (AUTO) 0.7 10^3/uL (0.0-0.7); HCT - HEMATOCRIT 35.1 % (42.0-52.0); HGB - HEMOGLOBIN 11.1 g/dL (14.0-18.0); LYMPHOCYTES # (AUTO) 1.1 10^3/uL (1.5-3.5); LYMPHOCYTES % (AUTO) 14.3 %; MEAN CORPUSCULAR HEMOGLOBIN 27.8 pg (27.0-31.0); MEAN CORPUSCULAR HGB CONC 31.6 g/dL (32.0-36.0); MEAN CORPUSCULAR VOLUME 87.8 fL (80.0-94.0); MEAN PLATELET VOLUME 8.8 fL (7.4-11.4); MONOCYTES # (AUTO) 0.4 10^3/uL (0.0-1.0); MONOCYTES % (AUTO) 5.2 %; NEUTROPHILS # (AUTO) 5.5 10^3/uL (1.5-6.6); NEUTROPHILS % (AUTO) 70.8 %; PLT - PLATELET COUNT 176 10^3/uL (130-450); RED CELL DISTRIBUTION WIDTH 15.1 % (12.0-15.0); WHITE BLOOD COUNT 7.8 x10^3/uL (4.8-10.8)
[2020-10-02 14:31] LABS: ALBUMIN 3.9 g/dL (3.2-5.5); ALBUMIN/GLOBULIN RATIO 1.2 (1.0-2.2); BILIRUBIN,TOTAL 0.6 mg/dL (0.2-1.0); CALCIUM 8.7 mg/dL (8.5-10.3); CREATININE 4.5 mg/dL (0.6-1.2); POTASSIUM 4.6 mmol/L (3.5-5.0); TOTAL PROTEIN 7.2 g/dL (6.7-8.2)
[2020-10-02] MEDS ORDERED: predniSONE 20 MG TABLET PO STA (15:38)
[2020-10-02] MEDS ORDERED: FUROSEMIDE 20 MG TABLET PO STA (15:38)
--- NOTE | 2020-10-02 15:41 | ED Physician Documentation ---
History of Present Illness - Stated complaint Stated Complaint: SOA, BODY SWELLING, - Chief complaint Chief Complaint: Cardiac - History obtained from History obtained from: Patient - History of Present Illness Pain level max: 0 Pain level now: 0 - Additonal information Additional information: Patient is a 70-year-old male who presents to the emergency department with difficulty breathing for the past week. He states he feels like his chest is tight. He states this feels similar to when he has had allergies in the past. This resolved with steroids in the past. He states that he had a AV fistula placed on the left arm about 4 weeks ago. Planning to start dialysis in another 4 weeks. States has had an 8 pound weight gain in the past week. No fevers. No chills. No cough. He also states that for the past 4 to 5 days he has had a feeling of numbness and tingling in the left side of his body. The states that he did have a stroke 2 years ago, but states his only symptom was "dizziness". The patient is not having any difficulty speaking, difficulty finding words, difficulty walking or performing his daily activities. Nothing makes it better or worse. The numbness/tingling is intermittent on the left side of the body Review of Systems Ten Systems: 10 systems reviewed and negative Constitutional: denies: Fever, Chills Nose: denies: Rhinorrhea / runny nose, Congestion Throat: denies: Sore throat Cardiac: denies: Chest pain / pressure, Palpitations Respiratory: reports: Dyspnea. denies: Cough, Hemoptysis, Wheezing GI: denies: Vomiting, Diarrhea Musculoskeletal: denies: Neck pain, Back pain Neurologic: denies: Headache PD PAST MEDICAL HISTORY - Past Medical History Past Medical History: Yes Cardiovascular: Hypertension, High cholesterol Neuro: Other Endocrine/Autoimmune: Type 2 diabetes : Renal insuffiency Psych: None Musculoskeletal: None - Past Surgical History Past Surgical History: Yes - Present Medications Home Medications: Ambulatory Orders Medication Instructions Recorded Confirmed Clotrimazole/Betamethasone Crm 45 gm TOP BID PRN 02/26/18 10/02/18 [Lotrisone Cream] Fenofibrate 160 mg PO DAILY 02/26/18 10/02/18 Gabapentin 300 mg PO BID 02/26/18 10/02/18 hydrALAZINE [Apresoline] 50 mg PO QDBREAKFAST 02/26/18 10/02/18 Aspirin 81 mg PO DAILY #15 tab.chew 10/02/18 Atorvastatin [Lipitor] 20 mg PO DAILY #30 tablet 10/02/18 Cetirizine [ZyrTEC] 10 mg PO DAILY 10/02/18 10/02/18 Fluocinonide 1 applic TOP BID PRN 10/02/18 10/02/18 Fluticasone [Flonase] 1 sprays MARK BID 10/02/18 10/02/18 Insulin NPH Hum/Reg Insulin Hm 60 unit SUBQ BIDWM 10/02/18 10/02/18 [Humulin 70-30 Vial] amLODIPine [Norvasc] 5 mg PO DAILY 10/02/18 10/02/18 carvediloL [Carvedilol] 25 mg PO BID 10/02/18 10/02/18 hydrALAZINE [Apresoline] 25 mg PO QDLUNCH 10/02/18 10/02/18 hydrALAZINE [Apresoline] 25 mg PO QPM 10/02/18 10/02/18 polyethylene glycoL 3350 [Miralax] 17 gm PO DAILY PRN #1 bottle 03/22/20 Albuterol Sulf [Ventolin Hfa 1 - 2 puffs INH Q4HR PRN #1 inhaler 10/02/20 Inhaler] Furosemide [Lasix] 40 mg PO DAILY #7 tablet 10/02/20 predniSONE [Deltasone] 40 mg PO DAILY #10 tablet 10/02/20 - Allergies Allergies/Adverse Reactions: Allergies Allergy/AdvReac Type Severity Reaction Status Date / Time No Known Drug Allergies Allergy Verified 03/22/20 17:30 - Social History Does the pt smoke?: No Smoking Status: Never smoker Does the pt drink ETOH?: No Does the pt have substance abuse?: No - Immunizations Immunizations are current?: Yes - POLST Patient has POLST: No PD ED PE NORMAL - Vitals Vital signs reviewed: Yes - General General: Alert and oriented X 3, No acute distress - HEENT HEENT: Moist mucous membranes - Neck Neck: Supple, no meningeal sign - Cardiac Cardiac: RRR, Strong equal pulses - Respiratory Respiratory: No respiratory distress, Clear bilaterally - Abdomen Abdomen: Soft, Non tender, Non distended - Derm Derm: Warm and dry - Extremities Extremities: Other (Left AV fistula with palpable thrill. Neurovascularly intact. No signs of infection. 2+ BLE edema) - Neuro Neuro: Alert and oriented X 3, fitting room checker 2-12 intact, No motor deficit, No sensory deficit, Normal speech, Other (Normal [id number]. Normal cerebellar test) Eye Opening: Spontaneous Motor: Obeys Commands Verbal: Oriented GCS Score: 15 - Psych Psych: Normal mood, Normal affect Results - Vitals Vitals: Vital Signs - 24 hr 10/02/20 10/02/20 10/02/20 14:58 16:00 16:55 Temperature 36.8 C 36.8 C Heart Rate 69 70 88 Respiratory 24 18 16 Rate Blood Pressure 130/58 L 128/60 O2 Saturation 98 100 Oxygen O2 Source Room air - EKG (time done) 1303 Rate: Rate (enter#) (68) Rhythm: NSR Phelps: Normal Intervals: Prolonged OR QRS: Normal Ischemia: Non specific changes - Labs Labs: Laboratory Tests 10/02/20 10/02/20 10/02/20 14:06 14:06 14:06 WBC 7.8 RBC 4.00 L Hgb 11.1 L Hct 35.1 L MCV 87.8 MCH 27.8 MCHC 31.6 L RDW 15.1 H Plt Count 176 MPV 8.8 Neut # (Auto) 5.5 Lymph # (Auto) 1.1 L [place] # (Auto) 0.4 Eos # (Auto) 0.7 Baso # (Auto) 0.0 Absolute Nucleated RBC 0.00 Nucleated RBC % 0.0 Sodium 137 Potassium 4.6 Chloride 105 Carbon Dioxide 22 Anion Gap 10.0 BUN 56 H Creatinine 4.5 H Estimated GFR (MDRD) 13 L Glucose 152 H Calcium 8.7 Total Bilirubin 0.6 AST 18 ALT 21 Alkaline Phosphatase 67 Troponin I High Sens 15.7 B-Natriuretic Peptide Total Protein 7.2 Albumin 3.9 Globulin 3.3 Albumin/Globulin Ratio 1.2 Lipase 31 10/02/20 14:06 WBC RBC Hgb Hct MCV MCH MCHC RDW Plt Count MPV Neut # (Auto) Lymph # (Auto) [place] # (Auto) Eos # (Auto) Baso # (Auto) Absolute Nucleated RBC Nucleated RBC % Sodium Potassium Chloride Carbon Dioxide Anion Gap BUN Creatinine Estimated GFR (MDRD) Glucose Calcium Total Bilirubin AST ALT Alkaline Phosphatase Troponin I High Sens B-Natriuretic Peptide 252 H Total Protein Albumin Globulin Albumin/Globulin Ratio Lipase - Rads (name of study) cxr Radiology: Prelim report reviewed, EMP read contemporaneously, See rad report (Portable chest within normal limits for age. ) head CT Radiology: Prelim report reviewed, EMP read contemporaneously, See rad report (No CT findings of acute infarct can be seen. ) PD MEDICAL DECISION MAKING - ED course Complexity details: reviewed results, re-evaluated patient, considered differential, d/w patient, d/w family ED course: Patient feels better after breathing treatment and steroids. Chest is less tight and he is breathing easier. NIH stroke scale of 0 currently. Unclear etiology as of the left-sided paresthesia. Would recommend that he follow-up with his doctor this next week for an MRI to exclude any sort of stroke in the recent interim. MRI is not available here for the next [address] on lasix for the peripheral edema as well. We will place on steroids and albuterol for home and have him follow-up with his doctor for further care. Patient and family counseled regarding signs and symptoms for which I believe and urgent re-evaluation would be necessary. Patient with good understanding of and agreement to plan and is comfortable going home at this time This document was made in part using voice recognition software. While efforts are made to proofread this document, sound alike and grammatical errors may occur. Departure - Departure Disposition: 01 Home, Self Care Clinical Impression: Paresthesia Dyspnea Qualifiers: Dyspnea type: shortness of breath Qualified Code(s): R06.02 - Shortness of breath Edema Qualifiers: Edema type: unspecified Qualified Code(s): R60.9 - Edema, unspecified Condition: Good Instructions: ED Dyspnea Shortness of Breath, ED Edema Legs Bilateral Follow-Up: Pedrito Schmitt MD [Primary Care Provider] - Within 3 Days Prescriptions: Albuterol Sulf [Ventolin Hfa Inhaler] 1 - 2 puffs INH Q4HR PRN #1 inhaler PRN Reason: Shortness Of Air/Wheezing predniSONE [Deltasone] 40 mg PO DAILY #10 tablet Furosemide [Lasix] 40 mg PO DAILY #7 tablet Comments: Follow up with your doctor for further care. Return if you worsen. As you have been having tingling and numbness on the left side of your body, it is recommended that you follow-up with your doctor next week for a brain MRI to exclude any stroke. Your head CT is normal here today. Take the medication as prescribed. Return if you worsen. Discharge Date/Time: 10/02/20 16:55 NIHSS - Time Time: 15:35 - Level of Consciousness Level of consciousness: (0) Alert, Keenly responsive LOC Questions: (0) Answers both Q's correct LOC Commands: (0) Performs both correctly - Gaze Best Gaze: (0) Normal - Visual Visual: (0) No loss - Facial Palsy Facial Palsy: (0) Normal, symmetrical movement - Motor Arms (both separate) Motor Arm (right): (0) No drift Motor Arm (left): (0) No drift - Motor Legs (both separate) Motor Leg (right): (0) No drift Motor Leg (left): (0) No drift - Limb Ataxia Limb Ataxia: (0) Absent - Sensory Sensory: (0) Normal - Best Language Best Language: (0) No aphasia - Dysarthria Dysarthria: (0) Normal - Extinction and Inattention (formally neg Extinction and inattention: (0) No abnormality - Total Score/Results Total Score/Result: 0
--- NOTE | 2020-10-02 16:20 | CT Report ---
PROCEDURE: HEAD WO INDICATIONS: L sided numbness x 4 days TECHNIQUE: Noncontrast 4.5 mm thick angled axial sections acquired from the foramen magnum to the vertex. For r adiation dose reduction, the following was used: automated exposure control, adjustment of mA and/or kV according to patient size. COMPARISON: 10/01/2018 CT and MRI. FINDINGS: Image quality: There is streak artifact seen through the skull base. CSF spaces: Basal cisterns are patent. No extra-axial fluid collections. Ventricles are normal in size and shape. Brain: No midline shift. No intracranial masses or hemorrhage. [place]-white matter interface is norm al. A remote infarct of the left kumar can be seen. Age-appropriate brain parenchymal volume loss and chronic small vessel ischemic change can be seen. Skull and face: Calvarium and visualized facial bones are intact, without suspicious lesions. Sinuses: Mild to moderate mucosal thickening is seen within the ethmoid air cells. The paranasal sinu ses otherwise appear clear. Bilateral sergei bullosa can be seen. No significant abnormal fluid can b e seen within the mastoid air cells or within the middle ear cavities. IMPRESSION: No CT findings of acute infarct can be seen. No intracranial hemorrhage is seen. If there is strong clinical concern for a stroke, please consider a dedicated brain MRI for further e valuation (assuming that there is no contraindication to MRI). Reviewed by: Eligio Arenas MD on 10/02/2020 3:18 PM RUBEN Approved by: Eligio Arenas MD on 10/02/2020 3:18 PM [id number] Station ID: [id number]
[2020-10-02 16:22] VITALS: BP 128/60
[2020-10-02] MEDS ORDERED: ALBUTEROL 1 PUFF INH STA (16:32)
== END 2020-10-02 16:55 | disposition home or self-care (01) ==
LOC: ED 12:46
DX: R06.02 Shortness of breath (principal); R07.89 Other chest pain; R20.2 Paresthesia of skin; R60.0 Localized edema; I44.0 Atrioventricular block, first degree; I10 Essential (primary) hypertension; E11.9 Type 2 diabetes mellitus without complications; Z79.4 Long term (current) use of insulin; Z79.82 Long term (current) use of aspirin
CPT/HCPCS: 36415; 70450; 71045; 80053; 83690; 83880; 84484; 85025; 93005; 94640; 99284; A9270; J7512

== ENCOUNTER 2020-10-18 09:31 | Outpatient (CLI) | payer MEDICARE, OTHER ==
[2020-10-18 12:33] LABS: CALCIUM 9.7 mg/dL (8.5-10.3); CREATININE 4.6 mg/dL (0.6-1.2); POTASSIUM 4.2 mmol/L (3.5-5.0)
[2020-10-19 11:41] LABS: HEPATITIS B SURFACE ANTIGEN NON-REACTIVE (NON-REACTIVE)
[2020-10-19 11:42] LABS: HEPATITIS C ANTIBODY NON-REACTIVE (NON-REACTIVE)
== END 2020-10-18 09:32 | disposition home or self-care (01) ==
LOC: LAB.N 09:31
PROVIDERS: ATTEND Internal Medicine Nephrology
DX: N05.9 Unspecified nephritic syndrome with unspecified morphologic changes (principal); B19.10 Unspecified viral hepatitis B without hepatic coma; B17.10 Acute hepatitis C without hepatic coma
CPT/HCPCS: 36415; 80048; 86317; 86704; 86803; 87340

== ENCOUNTER 2020-11-04 08:00 | Outpatient (CLI) | payer MEDICARE, OTHER ==
[2020-11-04 12:22] LABS: BASOPHILS % (AUTO) 0.5 %; EOSINOPHILS # (AUTO) 0.8 10^3/uL (0.0-0.7); EOSINOPHILS % (AUTO) 10.8 %; HCT - HEMATOCRIT 35.4 % (42.0-52.0); HGB - HEMOGLOBIN 11.1 g/dL (14.0-18.0); LYMPHOCYTES # (AUTO) 1.4 10^3/uL (1.5-3.5); MEAN CORPUSCULAR HEMOGLOBIN 27.2 pg (27.0-31.0); MEAN CORPUSCULAR HGB CONC 31.4 g/dL (32.0-36.0); MEAN CORPUSCULAR VOLUME 86.8 fL (80.0-94.0); MEAN PLATELET VOLUME 9.8 fL (7.4-11.4); MONOCYTES # (AUTO) 0.7 10^3/uL (0.0-1.0); MONOCYTES % (AUTO) 8.6 %; NEUTROPHILS # (AUTO) 4.6 10^3/uL (1.5-6.6); NEUTROPHILS % (AUTO) 60.6 %; PLT - PLATELET COUNT 205 10^3/uL (130-450); RED BLOOD COUNT 4.08 10^6/uL (4.70-6.10); RED CELL DISTRIBUTION WIDTH 15.2 % (12.0-15.0); WHITE BLOOD COUNT 7.6 x10^3/uL (4.8-10.8)
[2020-11-04 12:32] LABS: CREATININE 4.5 mg/dL (0.6-1.2); POTASSIUM 3.7 mmol/L (3.5-5.0)
== END 2020-11-04 23:59 | disposition home or self-care (01) ==
LOC: LAB.WCP 08:00
PROVIDERS: ATTEND Internal Medicine Nephrology
DX: N05.9 Unspecified nephritic syndrome with unspecified morphologic changes (principal); D70.9 Neutropenia, unspecified
CPT/HCPCS: 36415; 80048; 85025

== ENCOUNTER 2020-12-24 11:03 | Outpatient (CLI) | payer MEDICARE, OTHER ==
[2020-12-24 11:29] LABS: BASOPHILS % (AUTO) 0.4 %; EOSINOPHILS % (AUTO) 12.5 %; LYMPHOCYTES # (AUTO) 1.5 10^3/uL (1.5-3.5); LYMPHOCYTES % (AUTO) 19.1 %; MEAN CORPUSCULAR HEMOGLOBIN 27.5 pg (27.0-31.0); MEAN CORPUSCULAR HGB CONC 31.6 g/dL (32.0-36.0); MONOCYTES # (AUTO) 0.5 10^3/uL (0.0-1.0); MONOCYTES % (AUTO) 6.9 %; NEUTROPHILS # (AUTO) 4.6 10^3/uL (1.5-6.6); NEUTROPHILS % (AUTO) 60.4 %; PLT - PLATELET COUNT 162 10^3/uL (130-450); RED BLOOD COUNT 4.37 10^6/uL (4.70-6.10); WHITE BLOOD COUNT 7.7 x10^3/uL (4.8-10.8)
== END 2020-12-24 11:04 | disposition home or self-care (01) ==
LOC: LAB 11:03
PROVIDERS: ATTEND Internal Medicine Nephrology
DX: D70.9 Neutropenia, unspecified (principal)
CPT/HCPCS: 36415; 85025

== ENCOUNTER 2020-12-24 11:10 | Outpatient (CLI) | payer MEDICARE, OTHER ==
--- NOTE | 2020-12-24 11:48 | XRAY Report ---
PROCEDURE: Chest 2 View X-Ray INDICATIONS: ESRD TECHNIQUE: 2 view(s) of the chest. COMPARISON: None. FINDINGS: Surgical changes and devices: None. Lungs and pleura: No pleural effusions or pneumothorax. Lungs are clear. Mediastinum: Mediastinal contours are normal. Heart size is normal. Bones and chest wall: No suspicious bony abnormalities. Soft tissues appear unremarkable. IMPRESSION: No acute cardiopulmonary abnormality. No evidence of tuberculosis. Reviewed by: Gerardo Jenkins on 12/24/2020 11:47 AM PDT Approved by: Gerardo Jenkins on 12/24/2020 11:47 AM PDT Station ID: [id number]
== END 2020-12-24 11:11 | disposition home or self-care (01) ==
LOC: DI 11:10
PROVIDERS: ATTEND Internal Medicine Nephrology
DX: N18.6 End stage renal disease (principal); Z11.1 Encounter for screening for respiratory tuberculosis; D70.9 Neutropenia, unspecified
CPT/HCPCS: 36415; 85025

== ENCOUNTER 2021-06-14 09:34 | Outpatient (CLI) | payer MEDICARE, OTHER ==
[2021-06-14 13:22] LABS: BUN - BLOOD UREA NITROGEN 28 mg/dL (6-20); CALCIUM 9.5 mg/dL (8.5-10.3); CARBON DIOXIDE - CO2 30 mmol/L (21-32); CHLORIDE 95 mmol/L (101-111); CHOL/HDL RATIO 7.7 (<5.0); CHOLESTEROL 223 mg/dL; CREATININE 4.1 mg/dL (0.6-1.2); ESTIMATED AVERAGE GLUCOSE 137 mg/dL (70-100); GFR - MDRD 14 (>89); GLUCOSE 92 mg/dL (70-100); HDL CHOLESTEROL 29 mg/dL; HEMOGLOBIN A1c% 6.4 % (4.27-6.07); POTASSIUM 4.4 mmol/L (3.5-5.0); SODIUM 136 mmol/L (135-145); TRIGLYCERIDES 585 mg/dL
[2021-06-14 14:20] LABS: LDL CHOLESTEROL,DIRECT 74 mg/dL; LDLD/HDL RATIO 2.6 (<3.6)
== END 2021-06-14 09:35 | disposition home or self-care (01) ==
LOC: LAB.N 09:34
PROVIDERS: ATTEND Internal Medicine
DX: E11.29 Type 2 diabetes mellitus with other diabetic kidney complication (principal); E78.5 Hyperlipidemia, unspecified; R97.20 Elevated prostate specific antigen [PSA]
CPT/HCPCS: 36415; 80048; 80061; 83036; 83721; 84153

== ENCOUNTER 2022-03-16 10:20 | Outpatient (CLI) | payer MEDICARE, OTHER ==
[2022-03-16 12:00] LABS: BASOPHILS % (AUTO) 0.4 %; EOSINOPHILS # (AUTO) 0.6 10^3/uL (0.0-0.7); EOSINOPHILS % (AUTO) 9.1 %; HCT - HEMATOCRIT 40.2 % (42.0-52.0); HGB - HEMOGLOBIN 13.1 g/dL (14.0-18.0); LYMPHOCYTES # (AUTO) 1.3 10^3/uL (1.5-3.5); LYMPHOCYTES % (AUTO) 18.7 %; MEAN CORPUSCULAR HEMOGLOBIN 29.6 pg (27.0-31.0); MEAN CORPUSCULAR HGB CONC 32.6 g/dL (32.0-36.0); MEAN PLATELET VOLUME 9.2 fL (7.4-11.4); MONOCYTES # (AUTO) 0.5 10^3/uL (0.0-1.0); NEUTROPHILS # (AUTO) 4.5 10^3/uL (1.5-6.6); NEUTROPHILS % (AUTO) 64.2 %; PLT - PLATELET COUNT 173 10^3/uL (130-450); RED BLOOD COUNT 4.42 10^6/uL (4.70-6.10); RED CELL DISTRIBUTION WIDTH 14.1 % (12.0-15.0)
[2022-03-16 12:17] LABS: CALCIUM 9.3 mg/dL (8.5-10.3); CREATININE 4.8 mg/dL (0.6-1.2); POTASSIUM 4.2 mmol/L (3.5-5.0)
[2022-03-16 13:35] LABS: ESTIMATED AVERAGE GLUCOSE 143 mg/dL (70-100); HEMOGLOBIN A1c% 6.6 % (4.27-6.07)
== END 2022-03-16 10:21 | disposition home or self-care (01) ==
LOC: LAB.N 10:20
PROVIDERS: ATTEND Orthopaedic Surgery
DX: Z01.818 Encounter for other preprocedural examination (principal); R73.9 Hyperglycemia, unspecified; M25.561 Pain in right knee
CPT/HCPCS: 36415; 80048; 83036; 85025

== ENCOUNTER 2022-03-16 12:20 | Outpatient (CLI) | payer MEDICARE, OTHER | END 2022-03-16 12:21 | disposition home or self-care (01) | LOC: RT 12:20 | PROVIDERS: ATTEND Internal Medicine | DX: Z01.818 Encounter for other preprocedural examination (principal); M25.561 Pain in right knee; R73.9 Hyperglycemia, unspecified | CPT/HCPCS: 36415; 80048; 83036; 85025; 93005 ==

== ENCOUNTER 2022-04-28 18:21 | Emergency (ER) | payer MEDICARE, OTHER ==
[2022-04-28 18:40] VITALS: BP 156/65
[2022-04-28 18:54] LABS: BILIRUBIN,URINE NEGATIVE (NEGATIVE); CLARITY,URINE CLOUDY (CLEAR); GLUCOSE, URINE (UA) NEGATIVE (NEGATIVE); KETONES,URINE (UA) NEGATIVE (NEGATIVE); LEUKOCYTE ESTERASE, URINE LARGE (NEGATIVE); NITRITE,URINE NEGATIVE (NEGATIVE); OCCULT BLOOD,URINE MODERATE (NEGATIVE); PH,URINE 8.5 PH (5.0-7.5); PROTEIN,URINE 100 mg/dL (NEGATIVE); UROBILINOGEN,URINE 0.2 (NORMAL) E.U./dL (NORMAL)
[2022-04-28 18:57] LABS: BASOPHILS % (AUTO) 0.5 %; EOSINOPHILS # (AUTO) 0.7 10^3/uL (0.0-0.7); EOSINOPHILS % (AUTO) 8.1 %; HCT - HEMATOCRIT 39.1 % (42.0-52.0); HGB - HEMOGLOBIN 13.1 g/dL (14.0-18.0); LYMPHOCYTES % (AUTO) 11.7 %; MEAN CORPUSCULAR HEMOGLOBIN 30.2 pg (27.0-31.0); MEAN CORPUSCULAR HGB CONC 33.5 g/dL (32.0-36.0); MEAN CORPUSCULAR VOLUME 90.1 fL (80.0-94.0); MEAN PLATELET VOLUME 8.7 fL (7.4-11.4); MONOCYTES # (AUTO) 0.6 10^3/uL (0.0-1.0); MONOCYTES % (AUTO) 7.3 %; NEUTROPHILS # (AUTO) 5.9 10^3/uL (1.5-6.6); NEUTROPHILS % (AUTO) 71.4 %; PLT - PLATELET COUNT 187 10^3/uL (130-450); RED BLOOD COUNT 4.34 10^6/uL (4.70-6.10); RED CELL DISTRIBUTION WIDTH 14.4 % (12.0-15.0); WHITE BLOOD COUNT 8.3 x10^3/uL (4.8-10.8)
--- OUTSIDE RECORDS SUMMARY | 2022-04-28 19:07 | EXTERNAL MEDICAL SUMMARY RPT | Continuity of Care Document ---
:1950 Author Organization [facility] Address [address] [place] [address] Phone Allergies No information. Encounters No information. Functional Status No information. Immunizations No information. Medications No information. Problems date description facility 2022-03-23 11:56 Other microscopic hematuria [facility] 2022-04-19 09:59 Other microscopic hematuria [facility] Procedures No information. Results/Labs No information. Social History No information. Vital Signs No information.
[2022-04-28 19:08] LABS: ALBUMIN 4.2 g/dL (3.2-5.5); ALBUMIN/GLOBULIN RATIO 1.2 (1.0-2.2); BILIRUBIN,TOTAL 0.5 mg/dL (0.2-1.0); CREATININE 3.5 mg/dL (0.6-1.2); POTASSIUM 3.9 mmol/L (3.5-5.0); TOTAL PROTEIN 7.6 g/dL (6.7-8.2)
[2022-04-28 19:18] LABS: BACTERIA,URINE Moderate /HPF (None Seen); SQUAMOUS EPITHELIAL CELL,UR RARE Squamous (<= Few); WBC CLUMPS,URINE PRESENT; WBC,URINE >25 /HPF (0-3)
== END 2022-04-28 22:00 | disposition left against medical advice (07) ==
LOC: ED 18:21
DX: N23 Unspecified renal colic (principal); Z53.21 Procedure and treatment not carried out due to patient leaving prior to being seen by health care provider
CPT/HCPCS: 36415; 80053; 81001; 81003; 83690; 85025; 87086

== ENCOUNTER 2022-05-30 09:19 | Outpatient (CLI) | payer MEDICARE, OTHER ==
[2022-05-30 11:46] LABS: BASOPHILS # (AUTO) 0.1 10^3/uL (0.0-0.1); BASOPHILS % (AUTO) 0.7 %; EOSINOPHILS # (AUTO) 0.6 10^3/uL (0.0-0.7); EOSINOPHILS % (AUTO) 9.3 %; HCT - HEMATOCRIT 37.5 % (42.0-52.0); LYMPHOCYTES # (AUTO) 1.5 10^3/uL (1.5-3.5); LYMPHOCYTES % (AUTO) 21.5 %; MEAN CORPUSCULAR HEMOGLOBIN 29.5 pg (27.0-31.0); MEAN CORPUSCULAR VOLUME 92.1 fL (80.0-94.0); MEAN PLATELET VOLUME 8.8 fL (7.4-11.4); MONOCYTES # (AUTO) 0.4 10^3/uL (0.0-1.0); MONOCYTES % (AUTO) 6.1 %; NEUTROPHILS # (AUTO) 4.2 10^3/uL (1.5-6.6); NEUTROPHILS % (AUTO) 61.1 %; PLT - PLATELET COUNT 196 10^3/uL (130-450); RED BLOOD COUNT 4.07 10^6/uL (4.70-6.10); RED CELL DISTRIBUTION WIDTH 14.6 % (12.0-15.0); WHITE BLOOD COUNT 6.9 x10^3/uL (4.8-10.8)
[2022-05-30 12:12] LABS: ALBUMIN 3.9 g/dL (3.2-5.5); ALBUMIN/GLOBULIN RATIO 1.1 (1.0-2.2); ALKALINE PHOSPHATASE 52 IU/L (42-121); ALT ALANINE AMINOTRANSFERASE 21 IU/L (10-60); AST ASPARTATE AMINOTRANSFERASE 19 IU/L (10-42); BILIRUBIN,TOTAL 0.9 mg/dL (0.2-1.0); BUN - BLOOD UREA NITROGEN 27 mg/dL (6-20); CALCIUM 9.1 mg/dL (8.5-10.3); CARBON DIOXIDE - CO2 28 mmol/L (21-32); CHLORIDE 99 mmol/L (101-111); CHOL/HDL RATIO 7.9 (<5.0); CHOLESTEROL 228 mg/dL; CREATININE 4.6 mg/dL (0.6-1.2); GFR - MDRD 13 (>89); GLUCOSE 85 mg/dL (70-100); HDL CHOLESTEROL 29 mg/dL; POTASSIUM 4.1 mmol/L (3.5-5.0); SODIUM 138 mmol/L (135-145); TOTAL PROTEIN 7.4 g/dL (6.7-8.2); TRIGLYCERIDES 435 mg/dL
[2022-05-30 12:35] LABS: LDL CHOLESTEROL,DIRECT 102 mg/dL; LDLD/HDL RATIO 3.5 (<3.6)
[2022-05-30 12:43] LABS: ESTIMATED AVERAGE GLUCOSE 134 mg/dL (70-100); HEMOGLOBIN A1c% 6.3 % (4.27-6.07)
== END 2022-05-30 09:20 | disposition home or self-care (01) ==
LOC: LAB.N 09:19
PROVIDERS: ATTEND Internal Medicine
DX: E11.22 Type 2 diabetes mellitus with diabetic chronic kidney disease (principal); N18.6 End stage renal disease; E78.5 Hyperlipidemia, unspecified; R97.20 Elevated prostate specific antigen [PSA]; Z99.2 Dependence on renal dialysis
CPT/HCPCS: 36415; 80053; 80061; 83036; 83721; 84153; 85025

== ENCOUNTER 2022-06-07 21:33 | Emergency (ER) | payer MEDICARE, OTHER ==
--- NOTE | 2022-06-07 21:55 | ED Physician Documentation ---
PD HPI ABD PAIN - Stated complaint Stated Complaint: MALE - Chief complaint Chief Complaint: Abd Pain - History obtained from History obtained from: Patient - Additional information Additional information: 71-year-old gentleman with dialysis dependence Sunday and Sunday. He had a lithotripsy today and left the hospital 11 AM and has not been able to urinate since. He is quite uncomfortable in the suprapubic area and feels like he needs to pee. His urologist is Dr. Galan in [place]. He is on prophylactic postoperative antibiotics but they are not sure which. PD PAST MEDICAL HISTORY - Past Medical History Cardiovascular: Hypertension, High cholesterol Neuro: Other Endocrine/Autoimmune: Type 2 diabetes : Renal insuffiency Psych: None Musculoskeletal: None - Past Surgical History Past Surgical History: Yes - Present Medications Home Medications: Ambulatory Orders Medication Instructions Recorded Confirmed Clotrimazole/Betamethasone Crm 45 gm TOP BID PRN 02/26/18 10/02/18 [Lotrisone Cream] Fenofibrate 160 mg PO DAILY 02/26/18 10/02/18 Gabapentin 300 mg PO BID 02/26/18 10/02/18 hydrALAZINE [Apresoline] 50 mg PO QDBREAKFAST 02/26/18 10/02/18 Aspirin 81 mg PO DAILY #15 tab.chew 10/02/18 Atorvastatin [Lipitor] 20 mg PO DAILY #30 tablet 10/02/18 Cetirizine [ZyrTEC] 10 mg PO DAILY 10/02/18 10/02/18 Fluocinonide 1 applic TOP BID PRN 10/02/18 10/02/18 Fluticasone [Flonase] 1 sprays MARK BID 10/02/18 10/02/18 Insulin NPH Hum/Reg Insulin Hm 60 unit SUBQ BIDWM 10/02/18 10/02/18 [Humulin 70-30 Vial] amLODIPine [Norvasc] 5 mg PO DAILY 10/02/18 10/02/18 carvediloL [Carvedilol] 25 mg PO BID 10/02/18 10/02/18 hydrALAZINE [Apresoline] 25 mg PO QDLUNCH 10/02/18 10/02/18 hydrALAZINE [Apresoline] 25 mg PO QPM 10/02/18 10/02/18 polyethylene glycoL 3350 [Miralax] 17 gm PO DAILY PRN #1 bottle 03/22/20 Albuterol Sulf [Ventolin Hfa 1 - 2 puffs INH Q4HR PRN #1 inhaler 10/02/20 Inhaler] Furosemide [Lasix] 40 mg PO DAILY #7 tablet 10/02/20 predniSONE [Deltasone] 40 mg PO DAILY #10 tablet 10/02/20 - Allergies Allergies/Adverse Reactions: Allergies Allergy/AdvReac Type Severity Reaction Status Date / Time No Known Drug Allergies Allergy Verified 04/28/22 18:40 - Social History Does the pt smoke?: No Smoking Status: Never smoker Does the pt drink ETOH?: No Does the pt have substance abuse?: No - Immunizations Immunizations are current?: Yes - POLST Patient has POLST: No PD ED PE NORMAL - Vitals Vital signs reviewed: Yes - General General: Alert and oriented X 3, No acute distress - Abdomen Abdomen: Normal bowel sounds, Soft, Other (Bedside ultrasound shows distended bladder with some suprapubic tenderness.) - Neuro Neuro: Alert and oriented X 3, Normal speech - Psych Psych: Normal mood, Normal affect Results - Vitals Vitals: Vital Signs - 24 hr 06/07/22 21:45 Temperature 37.0 C Heart Rate 87 Respiratory 16 Rate O2 Saturation 100 Oxygen O2 Source Room air PD Medical Decision Making - ED course ED course: A Guevara was placed and he had over a liter out, was fairly bloody and he was counseled to push fluids to prevent clotting hematuria. The bloodiness is expected though given that he is postoperative after lithotripsy today. He did feel much better. Departure - Departure Disposition: 01 Home, Self Care Clinical Impression: Urinary retention Condition: Good Record reviewed to determine appropriate education?: Yes Instructions: ED Retention Urinary Male, ED Catheter Care Guevara Comments: You were seen selene for acute postoperative urinary retention after lithotripsy. You should call your urologist tomorrow to let her know what happened and that he will need probably sooner follow-up than was previously planned. Drink plenty of fluids. Return for new or worsening symptoms. Make sure to take the prophylactic antibiotics that she already prescribed.
--- OUTSIDE RECORDS SUMMARY | 2022-06-07 22:09 | EXTERNAL MEDICAL SUMMARY RPT | Continuity of Care Document ---
:1950 Author Organization [facility] Address [address] [place] [address] Phone Allergies No information. Encounters No information. Functional Status No information. Immunizations No information. Medications No information. Problems date description facility 2022-03-23 11:56 Other microscopic hematuria [facility] 2022-04-19 09:59 [facility] 10:15 End stage renal disease [facility] Procedures No information. Results/Labs test date author facility value unit interpret ation Result panel 1 (unknown) (no (unknown) (unknown) (no value) (units (unk nown) date) unknown) (unknown) (no (unknown) (unknown) +---------+ [phone] (uni ts (unknown) date) +--------- unknown) (unknown) (no (unknown) (unknown) +---------+ [facility] (uni ts (unknown) date) +--------- unknown) (unknown) (no (unknown) (unknown) + (uni ts (unknown) date) unknown) (unknown) (no (unknown) (unknown) [id number] (units (unkno wn) date) unknown) (unknown) (no (unknown) (unknown) 05/25/22 (units (unkno wn) date) unknown) (unknown) (no (unknown) (unknown) 1) Mildly increased (unit s (unknown) date) left ventricular unknown) thickness (concentric) with normal size, (unknown) (no (unknown) (unknown) [address] (units (unknown) date) unknown) (unknown) (no (unknown) (unknown) 2) Normal right (units (unknown) date) ventricular size and unknown) function. (unknown) (no (unknown) (unknown) 3) Diastolic (units (u nknown) date) parameters suggest a unknown) pseudonormalization pattern, consistent with (unknown) (no (unknown) (unknown) 4) No significant (units (unknown) date) valvular unknown) abnormalities. (unknown) (no (unknown) (unknown) 5) No prior Echo (units (unknown) date) available for unknown) comparison. (unknown) (no (unknown) (unknown) : : [address] : (unit s (unknown) date) : unknown) (unknown) (no (unknown) (unknown) : : [id number] : : (units ( unknown) date) unknown) (unknown) (no (unknown) (unknown) : : [place] : (unit s (unknown) date) : unknown) (unknown) (no (unknown) (unknown) : : Phone: [phone] : : (unit s (unknown) date) unknown) (unknown) (no (unknown) (unknown) :Account #: (units (un known) date) [id number] Gender: unknown) Male BSA: 2.1 m2 : (unknown) (no (unknown) (unknown) :: 1950 (units (unknown) date) Age: 71 yrs BP: unknown) 128/53 mmHg: (unknown) (no (unknown) (unknown) :Hospital MRN #: (units (unknown) date) [id number] unknown) ReadingLocation: Weight: 230 lb : (unknown) (no (unknown) (unknown) :KARELY SCHMITT (units (unknown) date) Performed By: Misty unknown) Sandra : (unknown) (no (unknown) (unknown) :Name: CHERISE (units (unknown) date) AROLDO Barron Study Date: unknown) 05/25/2022 Height: 67 in : (unknown) (no (unknown) (unknown) :Ordering Physician: (uni ts (unknown) date) : unknown) (unknown) (no (unknown) (unknown) :Reason For Study: (units (unknown) date) Pre-op knee surgery, unknown) Chronic Kidney Disease : (unknown) (no (unknown) (unknown) :Referring: (units (un known) date) KARELY SCHMITT : unknown) (unknown) (no (unknown) (unknown) sev ratio: 0.80 (units (unknown) date) unknown) (unknown) (no (unknown) (unknown) AV VR_phl: 0.90 (units (unknown) date) unknown) (unknown) (no (unknown) (unknown) JACK indexed to BSA (units (unknown) date) (cm2/m2): 1.2 unknown) (unknown) (no (unknown) (unknown) JACK(VTI)/BSA_phl: (units (unknown) date) 1.2 unknown) (unknown) (no (unknown) (unknown) Accession Number: (units (unknown) date) [id number] unknown) (unknown) (no (unknown) (unknown) Age/Sex: 71 / M Date (uni ts (unknown) date) of Service: unknown) (unknown) (no (unknown) (unknown) [place] [address] (unit s (unknown) date) unknown) (unknown) (no (unknown) (unknown) Ao V2 VTI: 29.9 cm (units (unknown) date) JACK(V,D): 2.8 cm2 unknown) (unknown) (no (unknown) (unknown) Ao V2 max: 136.0 (units (unknown) date) cm/sec LVOT Max Jagdeep: unknown) 123.0 cm/sec (unknown) (no (unknown) (unknown) Ao V2 mean: 93.7 (units (unknown) date) cm/sec LV V1 max PG: unknown) 6.1 mmHg (unknown) (no (unknown) (unknown) Ao max P.0 mmHg (unit s (unknown) date) LV V1 VTI: 24.0 cm unknown) (unknown) (no (unknown) (unknown) Ao mean P.0 mmHg (uni ts (unknown) date) JACK(I,D): 2.5 cm2 unknown) (unknown) (no (unknown) (unknown) Aortic Valve: The (units (unknown) date) aortic valve is unknown) normal in structure and function. The (unknown) (no (unknown) (unknown) Atria: The left (units (unknown) date) atrium is moderately unknown) dilated. The right atrium is mildly (unknown) (no (unknown) (unknown) : 1950 (units (unknown) date) Acct:[id number] unknown) (unknown) (no (unknown) (unknown) Doppler Measurements (uni ts (unknown) date) + Calculations unknown) (unknown) (no (unknown) (unknown) E/E' lat: 17.2 (units (unknown) date) unknown) (unknown) (no (unknown) (unknown) E/E' med: 20.1 PA (units (unknown) date) mean P.0 mmHg unknown) (unknown) (no (unknown) (unknown) E/e' average: 18.7 (units (unknown) date) unknown) (unknown) (no (unknown) (unknown) EPSS: 0.20 cm (units ( unknown) date) unknown) (unknown) (no (unknown) (unknown) Echocardiogram (units (unknown) date) Report unknown) (unknown) (no (unknown) (unknown) Echocardiography (units (unknown) date) Report unknown) (unknown) (no (unknown) (unknown) Electronically (units (unknown) date) signed by: Dominique Stringer on 05/25/2022 (unknown) (no (unknown) (unknown) FS: 40.0 % asc Aorta (uni ts (unknown) date) Diam: 3.3 cm unknown) (unknown) (no (unknown) (unknown) Great Vessels: The (units (unknown) date) aortic root is normal unknown) size. The dimensions of the (unknown) (no (unknown) (unknown) IVSd: 1.2 cm (units (u nknown) date) unknown) (unknown) (no (unknown) (unknown) Interpretation (units (unknown) date) Summary unknown) (unknown) (no (unknown) (unknown) [facility] (units (unknown) date) unknown) (unknown) (no (unknown) (unknown) [facility] (units (unkno wn) date) unknown) (unknown) (no (unknown) (unknown) LA A2 area: 17.9 cm2 (uni ts (unknown) date) RA area: 20.5 cm2 unknown) (unknown) (no (unknown) (unknown) LA A4 area: 23.5 cm2 (uni ts (unknown) date) RA vol: 67.7 ml unknown) (unknown) (no (unknown) (unknown) LA dimension: 4.5 cm (uni ts (unknown) date) RA long axis: 5.3 cm unknown) (unknown) (no (unknown) (unknown) LA length (vol): 4.8 (uni ts (unknown) date) cm RA : 31.5 ml/m2 unknown) (unknown) (no (unknown) (unknown) LA vol index: 34.8 (units (unknown) date) ml/m2 unknown) (unknown) (no (unknown) (unknown) LA vol: 74.7 ml (units (unknown) date) unknown) (unknown) (no (unknown) (unknown) LV gross. (units (unkno wn) date) diameter/BSA (cm/m2): unknown) 1.9 (unknown) (no (unknown) (unknown) LV sys. diameter/BSA (uni ts (unknown) date) (cm/m2): 1.1 unknown) (unknown) (no (unknown) (unknown) LVIDd: 4.0 cm LVOT (units (unknown) date) diam: 2.0 cm unknown) (unknown) (no (unknown) (unknown) LVIDs: 2.4 cm Ao (units (unknown) date) root diam: 3.1 cm unknown) (unknown) (no (unknown) (unknown) LVLs ap2: 6.8 cm (units (unknown) date) unknown) (unknown) (no (unknown) (unknown) LVLs ap4: 6.2 cm (units (unknown) date) LVLd ap2: 8.1 cm unknown) (unknown) (no (unknown) (unknown) LVPWd: 1.2 cm (units ( unknown) date) unknown) (unknown) (no (unknown) (unknown) Lat Peak E' Jagdeep: 6.1 (uni ts (unknown) date) cm/sec unknown) (unknown) (no (unknown) (unknown) Left Ventricle: The (unit s (unknown) date) left ventricle is unknown) normal in size. There is mild (unknown) (no (unknown) (unknown) Loc: ECHO (units (unkn own) date) unknown) (unknown) (no (unknown) (unknown) MMode/2D (units (unkno wn) date) Measurements + unknown) Calculations (unknown) (no (unknown) (unknown) MV A max jagdeep: 117.0 (unit s (unknown) date) cm/sec TR max P.7 unknown) mmHg (unknown) (no (unknown) (unknown) MV E max jagdeep: 105.0 (unit s (unknown) date) cm/sec TR max jagdeep: unknown) 139.0 cm/sec (unknown) (no (unknown) (unknown) MV E/A: 0.90 PA V2 (units (unknown) date) max: 106.0 cm/sec unknown) (unknown) (no (unknown) (unknown) MV V2 VTI: 36.0 cm (units (unknown) date) unknown) (unknown) (no (unknown) (unknown) MV V2 mean: 72.1 (units (unknown) date) cm/sec SV(LVOT): 75.4 unknown) ml (unknown) (no (unknown) (unknown) MV dec time: 0.22 (units (unknown) date) sec unknown) (unknown) (no (unknown) (unknown) MV mean P.0 mmHg (uni ts (unknown) date) unknown) (unknown) (no (unknown) (unknown) MVA(VTI): 2.1 cm2 (units (unknown) date) unknown) (unknown) (no (unknown) (unknown) Med Peak E' Jagdeep: 5.2 (uni ts (unknown) date) cm/sec PA V2 mean: unknown) 75.9 cm/sec (unknown) (no (unknown) (unknown) Mitral Valve: The (units (unknown) date) mitral valve leaflets unknown) are mildly calcified. There is trace (unknown) (no (unknown) (unknown) Ordering Provider: (units (unknown) date) Karely Schmitt MD unknown) (unknown) (no (unknown) (unknown) Patient: (units (unkno wn) date) Aroldo Lunsford MR#: unknown) M0 (unknown) (no (unknown) (unknown) Pericardium/ Pleura (unit s (unknown) date) There is no unknown) pericardial effusion. There is no pleural (unknown) (no (unknown) (unknown) Procedure: A (units (u nknown) date) two-dimensional unknown) transthoracic echocardiogram with color flow (unknown) (no (unknown) (unknown) Procedure: EC echo (units (unknown) date) doppler complete unknown) (unknown) (no (unknown) (unknown) Pulmonic Valve: The (unit s (unknown) date) pulmonic valve unknown) leaflets are thin and pliable; valve (unknown) (no (unknown) (unknown) Reading (units (unkno wn) date) Physician:04:41 PM unknown) (unknown) (no (unknown) (unknown) Right Ventricle: The (uni ts (unknown) date) right ventricle is unknown) normal in size and function. (unknown) (no (unknown) (unknown) Signed (units (unkno wn) date) unknown) (unknown) (no (unknown) (unknown) TAPSE_phl: 2.8 cm (units (unknown) date) unknown) (unknown) (no (unknown) (unknown) There is a trace or (unit s (unknown) date) physiologic amount of unknown) tricuspid regurgitation. Pulmonary (unknown) (no (unknown) (unknown) Tricuspid Valve: The (uni ts (unknown) date) tricuspid valve is unknown) normal in structure and function. (unknown) (no (unknown) (unknown) (uni ts (unknown) date) unknown) (unknown) (no (unknown) (unknown) and Doppler was (units (unknown) date) performed. The unknown) patient was in sinus rhythm with heart rates (unknown) (no (unknown) (unknown) aortic valve is (units (unknown) date) slightly calcified. unknown) There is no aortic valve stenosis. There (unknown) (no (unknown) (unknown) artery pressures (units (unknown) date) cannot be estimated unknown) because of the lack of a measurable TR (unknown) (no (unknown) (unknown) ascending aorta are (unit s (unknown) date) normal. The IVC is of unknown) normal diameter and collapses (unknown) (no (unknown) (unknown) be 60-65%. Left (units (unknown) date) ventricular systolic unknown) function appears normal without focal (unknown) (no (unknown) (unknown) between 63-74 bpm (units (unknown) date) during the exam. unknown) (unknown) (no (unknown) (unknown) concentric left (units (unknown) date) ventricular unknown) hypertrophy. The ejection fraction is estimated to (unknown) (no (unknown) (unknown) dilated. There is no (uni ts (unknown) date) Doppler evidence for unknown) an interatrial shunt. (unknown) (no (unknown) (unknown) effusion. (units (unkn own) date) unknown) (unknown) (no (unknown) (unknown) greater than 50% (units (unknown) date) with a sniff. This unknown) suggests a low right atrial pressure of 3 (unknown) (no (unknown) (unknown) is no aortic (units (u nknown) date) regurgitation. unknown) (unknown) (no (unknown) (unknown) jet velocity. (units ( unknown) date) unknown) (unknown) (no (unknown) (unknown) mitral (units (unkno wn) date) regurgitation. unknown) (unknown) (no (unknown) (unknown) mm Hg. (units (unkno wn) date) unknown) (unknown) (no (unknown) (unknown) motion is normal. (units (unknown) date) There is a trace or unknown) physiologic amount of pulmonic (unknown) (no (unknown) (unknown) normal wall motion, (unit s (unknown) date) and normal systolic unknown) function (EF 60-65%). (unknown) (no (unknown) (unknown) pattern, consistent (unit s (unknown) date) with probable unknown) elevated filling pressures. (unknown) (no (unknown) (unknown) probable elevated (units (unknown) date) filling pressures. unknown) (unknown) (no (unknown) (unknown) regurgitation. (units (unknown) date) unknown) (unknown) (no (unknown) (unknown) wall motion (units (un known) date) abnormalities. unknown) Diastolic parameters suggest a pseudonormalization Social History No information. Vital Signs No information.
[2022-06-07 22:18] VITALS: BP 141/63
== END 2022-06-07 22:36 | disposition home or self-care (01) ==
LOC: ED 21:33
DX: R33.9 Retention of urine, unspecified (principal); E11.9 Type 2 diabetes mellitus without complications; Z79.4 Long term (current) use of insulin
CPT/HCPCS: 51702; 99283

== ENCOUNTER 2022-06-15 03:27 | Outpatient (CLI) | payer MEDICARE, OTHER | END 2022-06-15 03:28 | disposition EMS.NT | LOC: EMS 03:27 | DX: E11.649 Type 2 diabetes mellitus with hypoglycemia without coma (principal); Z99.2 Dependence on renal dialysis; Z79.4 Long term (current) use of insulin ==

== ENCOUNTER 2023-01-17 06:31 | Emergency (ER) | payer MEDICARE, OTHER ==
[2023-01-17] MEDS ORDERED: ONDANSETRON 4 MG/2 ML VIAL IVP STA (07:36)
--- NOTE | 2023-01-17 07:38 | ED Physician Documentation ---
History of Present Illness - Stated complaint Stated Complaint: DIARRHEA/ABD PX - Chief complaint Chief Complaint: Abd Pain - History obtained from History obtained from: Patient - Additonal information Additional information: The patient comes to the emergency department chief complaint of upper abdominal pain, nausea, and decreased appetite for the last 6 days. He states it all started when he ate a roast beef sandwich for lunch 6 days ago. He states that that night, he vomited 5 times and that he has felt nauseated ever since but has not vomited. The patient states that he also has been experiencing waves of upper abdominal cramping and discomfort that seem to cause the nausea to peak. The patient states that his daughter ate the same food as him and is not sick, and that he has had no other sick contacts. The patient has had some intermittent runny stools. He is on dialysis and skipped the first 2 days of dialysis after the symptoms started because he just did not feel good. However, he did go on Sunday, which was 2 days ago, his most recent scheduled dialysis. He is scheduled again later today. Patient states he does make urine but that his urine output has been darker and less voluminous since he has been dealing with this illness. No other complaints at this time. PD PAST MEDICAL HISTORY - Past Medical History Cardiovascular: Hypertension, High cholesterol Neuro: Other Endocrine/Autoimmune: Type 2 diabetes : Renal insuffiency Psych: None Musculoskeletal: None - Past Surgical History Past Surgical History: Yes - Present Medications Home Medications: Ambulatory Orders Medication Instructions Recorded Confirmed Clotrimazole/Betamethasone Crm 45 gm TOP BID PRN 02/26/18 10/02/18 [Lotrisone Cream] Fenofibrate 160 mg PO DAILY 02/26/18 10/02/18 Gabapentin 300 mg PO BID 02/26/18 10/02/18 hydrALAZINE [Apresoline] 50 mg PO QDBREAKFAST 02/26/18 10/02/18 Aspirin 81 mg PO DAILY #15 tab.chew 10/02/18 Atorvastatin [Lipitor] 20 mg PO DAILY #30 tablet 10/02/18 Cetirizine [ZyrTEC] 10 mg PO DAILY 10/02/18 10/02/18 Fluocinonide 1 applic TOP BID PRN 10/02/18 10/02/18 Fluticasone [Flonase] 1 sprays MARK BID 10/02/18 10/02/18 Insulin NPH Hum/Reg Insulin Hm 60 unit SUBQ BIDWM 10/02/18 10/02/18 [Humulin 70-30 Vial] amLODIPine [Norvasc] 5 mg PO DAILY 10/02/18 10/02/18 carvediloL [Carvedilol] 25 mg PO BID 10/02/18 01/17/23 hydrALAZINE [Apresoline] 25 mg PO QDLUNCH 10/02/18 10/02/18 hydrALAZINE [Apresoline] 25 mg PO QPM 10/02/18 10/02/18 polyethylene glycoL 3350(BULK) 17 gm PO DAILY PRN #1 bottle 03/22/20 [Miralax] Albuterol Sulf [Ventolin Hfa 1 - 2 puffs INH Q4HR PRN #1 inhaler 10/02/20 Inhaler] Furosemide [Lasix] 40 mg PO DAILY #7 tablet 10/02/20 predniSONE [Deltasone] 40 mg PO DAILY #10 tablet 10/02/20 Insulin Glargine [Lantus Solostar] 30 unit SUBQ DAILY 01/17/23 01/17/23 Torsemide 20 mg PO DAILY 01/17/23 01/17/23 - Allergies Allergies/Adverse Reactions: Allergies Allergy/AdvReac Type Severity Reaction Status Date / Time No Known Drug Allergies Allergy Verified 01/17/23 11:00 - Social History Does the pt smoke?: No Smoking Status: Never smoker Does the pt drink ETOH?: No Does the pt have substance abuse?: No - Immunizations Immunizations are current?: Yes - POLST Patient has POLST: No PD ED PE NORMAL - Vitals Vital signs reviewed: Yes - General General: Alert and oriented X 3, No acute distress, Well developed/nourished - HEENT HEENT: Atraumatic, PERRL, EOMI, Moist mucous membranes - Neck Neck: Supple, no meningeal sign - Cardiac Cardiac: RRR, No murmur - Respiratory Respiratory: No respiratory distress, Clear bilaterally - Abdomen Abdomen: Soft, Non distended, Other (Mild epigastric tenderness, no rebound or guarding.) - Derm Derm: Normal color, Warm and dry, No rash - Extremities Extremities: No deformity, No edema - Neuro Neuro: Alert and oriented X 3 - Psych Psych: Normal mood, Normal affect Results - Vitals Vitals: Vital Signs - 24 hr 01/17/23 01/17/23 01/17/23 06:44 07:30 11:00 Temperature 36.1 C L 36.2 C L Heart Rate 69 68 75 Respiratory 16 20 18 Rate Blood Pressure 175/79 H 171/75 H 148/57 H O2 Saturation 98 99 100 Oxygen O2 Source Room air - Labs Labs: Laboratory Tests 01/17/23 01/17/23 01/17/23 07:37 07:37 07:48 WBC 9.5 RBC 4.92 Hgb 14.6 Hct 43.7 MCV 88.8 MCH 29.7 MCHC 33.4 RDW 14.3 Plt Count 149 MPV 9.6 Neut # (Auto) 7.4 H Lymph # (Auto) 1.0 L Coal # (Auto) 0.6 Eos # (Auto) 0.6 Baso # (Auto) 0.0 Absolute Nucleated RBC 0.00 Nucleated RBC % 0.0 Sodium 136 Potassium 3.3 L Chloride 98 L Carbon Dioxide 25 Anion Gap 13.0 BUN 44 H Creatinine 4.8 H Estimated GFR (MDRD) 12 L Glucose 75 Calcium 9.7 Total Bilirubin 1.8 H AST 95 H ALT 274 H Alkaline Phosphatase 206 H Total Protein 7.2 Albumin 4.2 Globulin 3.0 Albumin/Globulin Ratio 1.4 Lipase 1527 H Urine Color DARK YELLOW Urine Clarity CLEAR Urine pH 6.0 Ur Specific [place] 1.015 Urine Protein 100 H Urine Glucose (UA) NEGATIVE Urine Ketones NEGATIVE Urine Occult Blood TRACE-INTA Urine Nitrite NEGATIVE Urine Bilirubin NEGATIVE Urine Urobilinogen 0.2 (NORMAL) Ur Leukocyte Esterase NEGATIVE Urine RBC 0-5 Urine WBC 0-3 Ur Squamous Epith Cells NONE SEEN Urine Bacteria Rare Ur Microscopic Review INDICATED Urine Culture Comments NOT INDICATED PD Medical Decision Making - ED course Complexity details: reviewed results, re-evaluated patient, considered differential, d/w patient ED course: The patient was worked up with laboratory studies and ultimately, ultrasound of his upper abdomen. He was found to have a lipase of around 1500 and LFTs elevated across the board. His white count was normal. GFR was 12 with a cr eatinine of 4.8. likely gallstone pancreatitis plus needs dialysis while admitted. The patient and were understanding and agreeable to the plan. Ultrasound showed a gallbladder that was very full of stones with mild wall thickening but normal ductal size. I discussed the case with Dr. Harris at [facility], who is on hospitalist duty, and he did graciously agree to accept this patient in transfer. I have discussed with the patient why he will need to be transferred. The patient has required a couple doses of Dilaudid while here but ultimately overall is more comfortable than when he arrived. He is agreeable to the plan. Departure - Departure Disposition: 02 Transfer Acute Care Hosp Clinical Impression: Acute gallstone pancreatitis, End stage renal disease on dialysis Condition: Serious Forms: PCP List
[2023-01-17 07:41] LABS: BASOPHILS % (AUTO) 0.3 %; EOSINOPHILS # (AUTO) 0.6 10^3/uL (0.0-0.7); EOSINOPHILS % (AUTO) 6.1 %; HCT - HEMATOCRIT 43.7 % (42.0-52.0); HGB - HEMOGLOBIN 14.6 g/dL (14.0-18.0); LYMPHOCYTES % (AUTO) 10.2 %; MEAN CORPUSCULAR HEMOGLOBIN 29.7 pg (27.0-31.0); MEAN CORPUSCULAR HGB CONC 33.4 g/dL (32.0-36.0); MEAN CORPUSCULAR VOLUME 88.8 fL (80.0-94.0); MEAN PLATELET VOLUME 9.6 fL (7.4-11.4); MONOCYTES # (AUTO) 0.6 10^3/uL (0.0-1.0); MONOCYTES % (AUTO) 5.8 %; NEUTROPHILS # (AUTO) 7.4 10^3/uL (1.5-6.6); NEUTROPHILS % (AUTO) 77.1 %; PLT - PLATELET COUNT 149 10^3/uL (130-450); RED BLOOD COUNT 4.92 10^6/uL (4.70-6.10); RED CELL DISTRIBUTION WIDTH 14.3 % (12.0-15.0); WHITE BLOOD COUNT 9.5 x10^3/uL (4.8-10.8)
[2023-01-17 08:01] LABS: ALBUMIN 4.2 g/dL (3.2-5.5); ALBUMIN/GLOBULIN RATIO 1.4 (1.0-2.2); BILIRUBIN,TOTAL 1.8 mg/dL (0.2-1.0); CALCIUM 9.7 mg/dL (8.5-10.3); CREATININE 4.8 mg/dL (0.6-1.3); POTASSIUM 3.3 mmol/L (3.5-4.5); TOTAL PROTEIN 7.2 g/dL (6.4-8.9)
[2023-01-17 08:01] LABS: BILIRUBIN,URINE NEGATIVE (NEGATIVE); GLUCOSE, URINE (UA) NEGATIVE (NEGATIVE); KETONES,URINE (UA) NEGATIVE (NEGATIVE); LEUKOCYTE ESTERASE, URINE NEGATIVE (NEGATIVE); NITRITE,URINE NEGATIVE (NEGATIVE); OCCULT BLOOD,URINE TRACE-INTA (NEGATIVE); PROTEIN,URINE 100 mg/dL (NEGATIVE); UROBILINOGEN,URINE 0.2 (NORMAL) E.U./dL (NORMAL)
[2023-01-17 08:02] LABS: CLARITY,URINE CLEAR (CLEAR)
[2023-01-17 08:17] LABS: BACTERIA,URINE Rare /HPF (None Seen); RBC,URINE 0-5 /HPF (0-5); SQUAMOUS EPITHELIAL CELL,UR NONE SEEN (<= Few); WBC,URINE 0-3 /HPF (0-3)
--- NOTE | 2023-01-17 09:38 | Ultrasound Report ---
PROCEDURE: Abdomen Limited INDICATIONS: upper abd pn/nausea after roast beef. h/o large st TECHNIQUE: Real-time focused scanning was performed of the abdomen, with image documentation. COMPARISONS: None. FINDINGS: Liver: The liver is normal size. The parenchyma is coarse and moderately diffusely hyperechoic. No d iscrete mass. Appropriate direction of flow in the portal vein. Gallbladder: Gallbladder has an indistinct, thickened wall measuring about 4.5 cm. There is dense sha dowing in the rest of the gallbladder suggesting considerable cholelithiasis. Cannot exclude perichol ecystic edema. There is no sonographic [place] sign reported by the technologist. Biliary ducts: Intrahepatic bile ducts are non-dilated. Extrahepatic bile duct caliber measures 6.8 mm. Normal is 6-7 mm or less in diameter, or 10 mm or less post-cholecystectomy. Pancreas: The proximal portion is seen. The mid and distal portion is limited due to bowel gas. Right kidney: Normal in size and echotexture. Right kidney measures 10.1 cm long. No hydronephrosis or nephrolithiasis. No solid masses. No complex renal cystic lesions which require follow-up. IMPRESSION: 1. Cholelithiasis and findings equivocal for acute cholecystitis. 2. Coarse and echogenic hepatic parenchyma suggesting steatosis or other intrinsic liver disease. Reviewed by: Abril Farrell MD on 01/17/2023 9:37 AM PDT Approved by: Abril Farrell MD on 01/17/2023 9:37 AM PDT Station ID: [id number]
[2023-01-17] MEDS ORDERED: HYDROmorphone 1 MG/ML CARPUJECT IVP STA ×2 (11:54→15:03)
[2023-01-17 15:48] VITALS: BP 176/70; O2SAT 96
== END 2023-01-17 15:40 | disposition short-term general hospital (02) ==
LOC: ED 06:31
DX: K85.10 Biliary acute pancreatitis without necrosis or infection (principal); N18.6 End stage renal disease; Z99.2 Dependence on renal dialysis
CPT/HCPCS: 36415; 76705; 80053; 81001; 83690; 85025; 96374; 96375; 96376; 99285; J1170; 81003; 87086